=== PATIENT | male | born 1985 | race Caucasian/White ===

== ENCOUNTER → 2020-11-01 | Outpatient (CLI) | payer OTHER ==
[2020-11-01 16:07] LABS: HEMATOCRIT 33 % (40-54); LYMPHOCYTES # (AUTO) 0.3 10^3/uL (1.0-4.0); MEAN CORPUSCULAR VOLUME 92 fL (80-99)
[2020-11-01 16:09] LABS: BASOPHILS % (AUTO) 1 % (0-10); EOSINOPHILS # (AUTO) 0.4 10^3/uL (0.0-0.3); EOSINOPHILS % (AUTO) 17 % (0-10); HEMOGLOBIN 10.7 g/dL (13.3-17.7); LYMPHOCYTES % (AUTO) 12 % (12-44); MEAN CORPUSCULAR HEMOGLOBIN 30 pg (25-34); MEAN CORPUSCULAR HGB CONC 32 g/dL (32-36); MEAN PLATELET VOLUME 11.2 fL (9.0-12.2); MONOCYTES # (AUTO) 0.1 10^3/uL (0.0-1.0); MONOCYTES % (AUTO) 6 % (0-12); NEUTROPHILS # (AUTO) 1.4 10^3/uL (1.8-7.8); NEUTROPHILS % (AUTO) 63 % (42-75); PLATELET COUNT 98 10^3/uL (130-400); WHITE BLOOD COUNT 2.2 10^3/uL (4.3-11.0)
[2020-11-01 16:16] LABS: ALBUMIN 3.4 GM/DL (3.2-4.5); CHLORIDE 109 MMOL/L (98-107)
[2020-11-01 16:17] LABS: SODIUM 138 MMOL/L (135-145)
[2020-11-01 16:18] LABS: CALCIUM 8.1 MG/DL (8.5-10.1)
[2020-11-01 16:19] LABS: GLUCOSE 90 MG/DL (70-105)
[2020-11-01 16:20] LABS: CARBON DIOXIDE 21 MMOL/L (21-32)
[2020-11-01 16:21] LABS: BILIRUBIN,TOTAL 0.5 MG/DL (0.1-1.0)
[2020-11-01 16:22] LABS: ALKALINE PHOSPHATASE 206 U/L (40-136)
[2020-11-01 16:23] LABS: CREATININE SERUM 0.74 MG/DL (0.60-1.30); GFR ESTIMATED > 60
[2020-11-01 16:24] LABS: BUN/CREATININE RATIO 14
[2020-11-01 16:25] LABS: ALANINE AMINOTRANSFERASE 153 U/L (0-55)
[2020-11-01 16:45] LABS: ANISOCYTOSIS SLIGHT; BAND NEUTROPHILS 0 %; BASOPHILS % (MANUAL) 0 %; ELLIPT/OVALOCYTES MODERATE; EOSINOPHILS % (MANUAL) 20 %; LYMPHOCYTES % (MANUAL) 12 %; MONOCYTES % (MANUAL) 2 %; NEUTROPHILS % (MANUAL) 66 %
[2020-11-01 16:46] LABS: ERYTHROCYTE SEDIMENTATION RATE 33 MM/HR (0-15)
== END ==
LOC: LAB 15:42
PROVIDERS: ATTEND Nurse Practitioner Family
DX: Z11.4 Encounter for screening for human immunodeficiency virus [HIV] (principal); R53.83 Other fatigue; R79.9 Abnormal finding of blood chemistry, unspecified; L02.416 Cutaneous abscess of left lower limb
CPT/HCPCS: 36415; 80053; 83036; 84443; 85007; 85027; 85652; 86703

== ENCOUNTER → 2020-11-01 | Outpatient (CLI) | payer OTHER | LOC: WOUNDCARE 13:36 | PROVIDERS: ATTEND Surgery | DX: L97.222 Non-pressure chronic ulcer of left calf with fat layer exposed (principal); B37.6 Candidal endocarditis; I48.91 Unspecified atrial fibrillation | CPT/HCPCS: 11104; A6197; G0463 ==

== ENCOUNTER → 2020-11-08 | Outpatient (CLI) | payer OTHER | LOC: WOUNDCARE 15:18 | PROVIDERS: ATTEND Surgery | DX: L97.222 Non-pressure chronic ulcer of left calf with fat layer exposed (principal); B37.6 Candidal endocarditis; I48.91 Unspecified atrial fibrillation; D72.810 Lymphocytopenia; B20 Human immunodeficiency virus [HIV] disease; I96 Gangrene, not elsewhere classified | CPT/HCPCS: 99212 ==

== ENCOUNTER → 2020-11-15 | Outpatient (CLI) | payer OTHER | LOC: WOUNDCARE 15:02 | PROVIDERS: ATTEND Surgery | DX: L97.222 Non-pressure chronic ulcer of left calf with fat layer exposed (principal); B37.6 Candidal endocarditis; I48.91 Unspecified atrial fibrillation; D72.810 Lymphocytopenia; B20 Human immunodeficiency virus [HIV] disease; I96 Gangrene, not elsewhere classified | CPT/HCPCS: 11042; A6260; G0463 ==

== ENCOUNTER → 2020-11-19 | Outpatient (CLI) | payer BC, OTHER ==
[~2020-11-19] MED LIST: BICT1TAB PO; FLUC50TA5 PO
== END ==
LOC: LAB 10:49
DX: Z20.822 Contact with and (suspected) exposure to COVID-19 (principal)

== ENCOUNTER → 2020-11-19 | Outpatient (CLI) | payer MEDICAID, OTHER | LOC: LAB 10:47 | PROVIDERS: ATTEND Pediatrics | DX: B20 Human immunodeficiency virus [HIV] disease (principal) | CPT/HCPCS: 36415; 87040; 87910 ==

== ENCOUNTER → 2020-11-22 | Outpatient (CLI) | payer BC, OTHER | LOC: WOUNDCARE 15:08 | PROVIDERS: ATTEND Surgery | DX: L97.222 Non-pressure chronic ulcer of left calf with fat layer exposed (principal); B37.6 Candidal endocarditis; I48.91 Unspecified atrial fibrillation; B20 Human immunodeficiency virus [HIV] disease; D72.810 Lymphocytopenia | CPT/HCPCS: 11042; G0463 ==

== ENCOUNTER → 2020-12-06 | Outpatient (CLI) | payer BC, OTHER | LOC: WOUNDCARE 15:24 | PROVIDERS: ATTEND Surgery | DX: B20 Human immunodeficiency virus [HIV] disease (principal); L97.222 Non-pressure chronic ulcer of left calf with fat layer exposed; B37.6 Candidal endocarditis; I48.91 Unspecified atrial fibrillation; D72.810 Lymphocytopenia | CPT/HCPCS: 99212 ==

== ENCOUNTER 2020-12-14 05:33 | Outpatient (RCR) | payer BC, OTHER ==
[~2020-12-14] VITALS: Ht 193 cm; Wt 99.9 kg
== END 2020-12-14 09:20 | disposition home or self-care (01) ==
LOC: PREOP 05:33
PROVIDERS: ATTEND Surgery
DX: Z01.812 Encounter for preprocedural laboratory examination (principal); R13.10 Dysphagia, unspecified; Z20.822 Contact with and (suspected) exposure to COVID-19
CPT/HCPCS: 87635

== ENCOUNTER → 2020-12-14 | Outpatient (CLI) | payer BC, OTHER | LOC: LAB 08:35 | PROVIDERS: ATTEND Pediatrics | DX: B20 Human immunodeficiency virus [HIV] disease (principal) | CPT/HCPCS: 36415; 87910 ==

== ENCOUNTER 2020-12-15 10:45 | Day surgery (SDC) | payer BC, OTHER ==
[~2020-12-15] VITALS: Ht 193 cm; Wt 99.9 kg
[2020-12-15] MEDS ORDERED: LACTATED RINGERS 1,000 ML IV ONE (10:57)
--- NOTE | 2020-12-15 11:08 | Progress Note-Pre Operative ---
Pre-Operative Progress Note H&P Reviewed The H&P was reviewed, patient examined and no changes noted. Time Seen by Provider: 11:06 Date H&P Reviewed: December 15, 2020 Time H&P Reviewed: 11:06 Pre-Operative Diagnosis: Dysphagia BAKARI JUAREZ DO December 15, 2020 11:08
[2020-12-15 11:15] VITALS: BP 107/79
[2020-12-15] MEDS ORDERED: proPOfol 200 MG/20 ML (DIPRIVAN) VIAL IV ONE (11:17)
[2020-12-15] MEDS ORDERED: MIDAZOLAM 2 MG/2 ML (VERSED) VIAL ONE (11:17)
--- NOTE | 2020-12-15 11:49 | Progress Note-Post Operative ---
Post-Operative Progess Note Surgeon (s)/House Detective (s) Surgeon BAKARI JUAREZ DO House Detective: none Pre-Operative Diagnosis Dysphagia Post-Operative Diagnosis same plus mild gastritis Hiatal hernia Procedure & Operative Findings Date of Procedure 12/15/20 Procedure Performed/Findings PROCEDURE NOTE: After informed consent was obtained, the patient was brought to the endoscopy suite, placed in bed in left lateral decubitus position. He was administered IV sedation by the PROCESS COACH who then monitored his vitals the entire time, heart rate, blood pressure and pulse ox and the scope was inserted down the mouth through the esophagus into the stomach. On the way down, noted some mild esophagitis, took a picture, pushed into the stomach, pushed pass the antrum into the duodenum. Duodenum looked good. Pulled back and did a biopsy of antrum, then retroflexed the scope, saw hiatal hernia, took a picture of this and then pulled the scope into the GE junction, took another picture of the hiatal hernia and then did a biopsy of the GE junction. Pushed the scope back into the stomach, suctioned all the air out of the stomach and then pulled the scope up the esophagus, took some pictures in the esophagus. There were no ulcers, yeast or strictures and at this point pulled the scope up the esophagus and out the mouth. The patient tolerated the procedure, and he was recovered in the endoscopy suite. Anesthesia Type IV sedation by PROCESS COACH Estimated Blood Loss Estimated blood loss (mL): scant Specimens/Packing Specimens Removed antral bx GE jxn bx BAKARI JUAREZ DO December 15, 2020 11:49
[2020-12-15 11:50] VITALS: BP 113/66
--- NOTE | 2020-12-15 11:50 | Endoscopy Discharge Instruct ---
Endo Procedure/Findings Findings 1.: Gastritis 2.: Hiatal Hernia Discharge Instructions - Activity: You might feel a little sleepy until tomorrow. This is due to the medicine you received to relax you. Until tomorrow, you should: NOT drive a car, operate machinery or power tools. NOT drink any alcoholic beverages. NOT make any important decisions or sign importortant papers. Do not return to work until tomorrow, unless otherwise instructed. Resume previous activities tomorrow. Diet: Start by taking liquids. If you tolerate liquids, advance to solid food. 1.: EGD in 3 years Notify Physician - If you experience excessive bleeding, unusual abdominal pain, fever, or chest pain, contact your doctor immediately. BAKARI JUAREZ DO December 15, 2020 11:50
[2020-12-15 11:55] VITALS: BP 110/71
[2020-12-15 12:00] VITALS: BP 110/71
[2020-12-15] MEDS ORDERED: LACTATED RINGERS 1,000 ML IV STA (12:04)
[2020-12-15] MEDS ORDERED: HURRICAINE EXT TUBE (BENZOCAINE) XX PRN (12:15)
--- NOTE | 2020-12-15 12:17 | Anesthesia-General Post-Op ---
MAC Patient Condition Mental Status/LOC: Same as Preop Cardiovascular: Satisfactory Nausea/Vomiting: Absent Respiratory: Satisfactory Pain: Controlled Complications: Absent Post Op Complications Complications None Follow Up Care/Instructions Patient Instructions None needed. Anesthesiology Discharge Order Discharge Order Patient is doing well, no complaints, stable vital signs, no apparent adverse anesthesia problems. No complications reported per nursing. ALEISHA SANCHEZ CRNA December 15, 2020 12:17
[2020-12-15 12:30] VITALS: BP 105/69
[2020-12-15 12:33] VITALS: BP 105/69
== END 2020-12-15 12:33 | disposition home or self-care (01) ==
LOC: ENDO 10:45
PROVIDERS: ATTEND Surgery
DX: K20.90 Esophagitis, unspecified without bleeding (principal); K44.9 Diaphragmatic hernia without obstruction or gangrene; K29.70 Gastritis, unspecified, without bleeding; B20 Human immunodeficiency virus [HIV] disease; F17.210 Nicotine dependence, cigarettes, uncomplicated; Z79.2 Long term (current) use of antibiotics; Z79.899 Other long term (current) drug therapy
CPT/HCPCS: 88305

== ENCOUNTER 2021-03-14 16:05 | Inpatient (IN) | payer BC ==
[~2021-03-14] VITALS: Ht 193 cm; Wt 98.0 kg
--- NOTE | 2021-03-14 16:40 | ED General ---
General Stated Complaint: SOB/COUGH/HEADACHE/FEVER Source of Information: Patient Exam Limitations: No Limitations (LI ALEXANDRA APRN) History of Present Illness Date Seen by Provider: Mar 14, 2021 Time Seen by Provider: 16:37 Initial Comments To ER for [facility] with reports of concern for sepsis. He was found to be tachycardic and febrile with wheezing noted. History of HIV with a CD4 count most recently of either 39 or 49. He is on Biktarvy since September of this year. He is on Bactrim for Pneumocystis carinii infection prophylaxis and Zithromax for Mycobacterium avium complex prophylaxis. He did receive his second Moderna vaccination on the . Fever up to 101 last night. Timing/Duration: 1-2 Days Severity: Moderate Associated Systoms: Cough, Shortness of Air (LI ALEXANDRA APRN) Allergies and Home Medications Allergies Coded Allergies: No Known Drug Allergies (Unverified , 12/15/20) Home Medications Bictegrav/Emtricit/Tenofov Ala 1 Each Tablet, 1 EACH PO DAILY, (Reported) Fluconazole 50 Mg Tablet, 50 MG PO DAILY, (Reported) Patient Home Medication List Home Medication List Reviewed: Yes (LI ALEXANDRA APRN) Review of Systems Review of Systems Constitutional: see HPI, fever EENTM: see HPI Respiratory: see HPI, cough, short of breath Cardiovascular: no symptoms reported Genitourinary: no symptoms reported Musculoskeletal: no symptoms reported Skin: no symptoms reported Psychiatric/Neurological: No Symptoms Reported Hematologic/Lymphatic: No Symptoms Reported Immunological/Allergic: no symptoms reported (LI ALEXANDRA APRN) Past Hghiknr-Dmfbns-Szzyyo Hx Seasonal Allergies Seasonal Allergies: No (LI ALEXANDRA APRN) Past Medical History Surgeries: Yes Orthopedic Respiratory: No Cardiac: No Neurological: No Genitourinary: No Gastrointestinal: No Musculoskeletal: Yes (BACK SURGERY x2) Endocrine: No HEENT: No Cancer: No Psychosocial: No Integumentary: No Blood Disorders: Yes (HIV+) (LI ALEXANDRA APRN) Physical Exam Vital Signs Vital Signs - First Documented 03/14/21 16:17 Temp 37.4 Pulse 108 Resp 20 B/P (MAP) 138/98 (111) Pulse Ox 94 O2 Delivery Room Air (LUCIA RATLIFF) Vital Signs Capillary Refill : (LI ALEXANDRA APRN) Height, Weight, BMI Height: '" Weight: lbs. oz. kg; 26.81 BMI Method: General Appearance: No Apparent Distress, WD/WN, Other (Alert and oriented nontoxic-appearing. Heart rate 106 oxygen saturation 93% room air blood pressure 139/90. Audible wheezing.) Eyes: Bilateral Eye Normal Inspection, Bilateral Eye PERRL HEENT: PERRL/EOMI, TMs Normal Neck: Full Range of Motion, Normal Inspection Respiratory: No Accessory Muscle Use, No Respiratory Distress, Wheezing Cardiovascular: Normal Peripheral Pulses, Tachycardia Gastrointestinal: Normal Bowel Sounds, Non Tender, Soft Extremity: Normal Capillary Refill, Normal Inspection Neurologic/Psychiatric: Alert, Oriented x3 Skin: Normal Color, Warm/Dry (LI ALEXANDRA APRN) Focused Exam Lactate Level 03/14/21 16:18: Lactic Acid Level 1.00 (LUCIA RATLIFF) Lactic Acid Level Laboratory Tests Test 03/14/21 16:18 Lactic Acid Level 1.00 MMOL/L (0.50-2.00) (LUCIA RATLIFF) Progress/Results/Core Measures Suspected Sepsis SIRS Temperature: Pulse: Respiratory Rate: Laboratory Tests 03/14/21 16:18: White Blood Count 5.5 Blood Pressure / Mean: 03/14/21 16:18: Lactic Acid Level 1.00 Laboratory Tests 03/14/21 16:18: Creatinine 1.20, INR Comment 1.0, Platelet Count 203, Total Bilirubin 0.5 (LI ALEXANDRA APRN) Results/Orders Lab Results Laboratory Tests Test 03/14/21 16:18 03/14/21 16:24 03/14/21 17:37 03/14/21 17:55 Range/Units White Blood Count 5.5 4.3-11.0 10^3/uL Red Blood Count 5.59 H 4.30-5.52 10^6/uL Hemoglobin 17.6 13.3-17.7 g/dL Hematocrit 52 40-54 % Mean Corpuscular Volume 93 80-99 fL Mean Corpuscular Hemoglobin 32 25-34 pg Mean Corpuscular Hemoglobin Concent 34 32-36 g/dL Red Cell Distribution Width 13.3 10.0-14.5 % Platelet Count 203 130-400 10^3/uL Mean Platelet Volume 9.0 9.0-12.2 fL Immature Granulocyte % (Auto) 0 % Neutrophils (%) (Auto) 69 42-75 % Lymphocytes (%) (Auto) 19 12-44 % Monocytes (%) (Auto) 6 0-12 % Eosinophils (%) (Auto) 5 0-10 % Basophils (%) (Auto) 1 0-10 % Neutrophils # (Auto) 3.8 1.8-7.8 10^3/uL Lymphocytes # (Auto) 1.1 1.0-4.0 10^3/uL Monocytes # (Auto) 0.3 0.0-1.0 10^3/uL Eosinophils # (Auto) 0.3 0.0-0.3 10^3/uL Basophils # (Auto) 0.1 0.0-0.1 10^3/uL Immature Granulocyte # (Auto) 0.0 0.0-0.1 10^3/uL Prothrombin Time 13.1 12.2-14.7 SEC INR Comment 1.0 0.8-1.4 Activated Partial Thromboplast Time 31 24-35 SEC Sodium Level 138 135-145 MMOL/L Potassium Level 4.0 3.6-5.0 MMOL/L Chloride Level 106 98-107 MMOL/L Carbon Dioxide Level 23 21-32 MMOL/L Anion Gap 9 5-14 MMOL/L Blood Urea Nitrogen 10 7-18 MG/DL Creatinine 1.20 0.60-1.30 MG/DL Estimat Glomerular Filtration Rate 68 BUN/Creatinine Ratio 8 Glucose Level 80 70-105 MG/DL Lactic Acid Level 1.00 0.50-2.00 MMOL/L Calcium Level 9.9 8.5-10.1 MG/DL Corrected Calcium 8.5-10.1 MG/DL Total Bilirubin 0.5 0.1-1.0 MG/DL Aspartate Amino Transf (AST/SGOT) 22 5-34 U/L Alanine Aminotransferase (ALT/SGPT) 22 0-55 U/L Alkaline Phosphatase 80 40-136 U/L B-Type Natriuretic Peptide < 10.0 <100.0 PG/ML Total Protein 8.5 H 6.4-8.2 GM/DL Albumin 4.6 H 3.2-4.5 GM/DL Procalcitonin 0.04 <0.10 NG/ML Influenza Type A (RT-PCR) Not Detected Not Detecte Influenza Type B (RT-PCR) Not Detected Not Detecte SARS-CoV-2 RNA (RT-PCR) Not Detected Not Detecte Urine Color YELLOW Urine Clarity CLEAR Urine pH 6.0 5-9 Urine Specific [place] 1.015 L 1.016-1.022 Urine Protein 1+ H NEGATIVE Urine Glucose (UA) NEGATIVE NEGATIVE Urine Ketones NEGATIVE NEGATIVE Urine Nitrite NEGATIVE NEGATIVE Urine Bilirubin NEGATIVE NEGATIVE Urine Urobilinogen 1.0 < = 1.0 MG/DL Urine Leukocyte Esterase NEGATIVE NEGATIVE Urine RBC (Auto) NEGATIVE NEGATIVE Urine RBC NONE /HPF Urine WBC RARE /HPF Urine Squamous Epithelial Cells RARE /HPF Urine Crystals PRESENT H /LPF Urine Calcium Oxalate Crystals RARE H /LPF Urine Bacteria NEGATIVE /HPF Urine Casts NONE /LPF Urine Mucus NEGATIVE /LPF Urine Culture Indicated CULTURE PENDING (LUCIA RATLIFF) Medications Given in ED Current Medications Medications Dose Ordered Sig/Sonam Route Start Time Stop Time Status Last Admin Dose Admin Cefepime HCl 2000 mg/Sterile Water 20 ml @ 240 mls/hr ONCE ONCE IV 03/14/21 18:15 03/14/21 18:19 DC 03/14/21 18:20 240 MLS/HR Vancomycin HCl 1500 mg/Sodium Chloride 500 ml @ 257.5 mls/ hr ONCE ONCE IV 03/14/21 18:15 03/14/21 20:11 DC 03/14/21 18:27 257.5 MLS/HR (LUCIA RATLIFF) Vital Signs/I&O 03/14/21 03/14/21 16:17 16:45 Temp 37.4 Pulse 108 Resp 20 B/P (MAP) 138/98 (111) Pulse Ox 94 O2 Delivery Room Air Room Air (LUCIA RATLIFF) Vital Signs/I&O Capillary Refill : (LI ALEXANDRA APRN) Progress Note : Time: 22:44 Progress Note Assumed care of the patient at shift change. He has sepsis, HIV complicated pneumonia. Previous CD4 counts were below 40. We will continue looking for a place for him to go to. Cefepime and vancomycin. (LUCIA RATLIFF) Progress Note : Time: 06:35 Progress Note Patient care assumed at shift change from Dr. Ratliff. Very pleasant 35-year-old male with a chief complaint of cough, congestion and wheezing, shortness of breath. Patient states that his symptoms started last Sunday with cough and congestion, progressed on Sunday to more shortness of breath on Sunday he sta rted running fever. Patient went to his primary care provider yesterday afternoon and was then sent to the emergency department for evaluation. Patient was found to have a right lower lobe infiltrate. Reported low CD4 counts less than 40. He is on HIV medications. He denies any problems with bowel or bladder. No rashes. No earache sore throat. He has been in this department for about 14 hours secondary to bed availability and concern for need for infectious disease consult. Patient's sepsis markers are negative. His blood pressure has been good his heart rate is currently down into the 80s. Oxygen saturations are 94 to 95% on room air. He has no increased work of breathing or respiratory distress currently. He does have coarse wheezy breath sounds bilaterally. Patient has had 2 doses of cefepime as well as a dose of vancomycin. He is also on antibiotic prophylaxis with Bactrim and azithromycin. We will speak with ICU/pulmonary critical care services for consult. Overall patient looks well this morning. Blood cultures pending. [address] Brand with eICU. He is very comfortable with the current management plan of cefepime and vancomycin. He states in no way at this time does the patient require intensive care placement. He would be comfortable with MedSurg placement. Vital signs remained stable, I did also subsequently discussed the case with Dr. Lambert who accepts the patient to the MedSurg floor. (DIANA VALENTIN MD) Diagnostic Imaging Diagonstic Imaging: Xray Comments NAME: JULIANE SMITHTAY [facility] REC#: [id number] PT STATUS: REG ER : 1985 PHYSICIAN: LI ALEXANDRA UNDERWRITING DIRECTOR ADMIT DATE: 03/14/21/ER Draft Date of Exam:03/14/21 CHEST 1 VIEW, AP/PA ONLY EXAM: CHEST 1 VIEW, AP/PA ONLY INDICATION: Sepsis. COMPARISON: None. FINDINGS: Subtle airspace opacity in the medial right lung base. No pleural effusion or pneumothorax. Normal heart size and central pulmonary vascularity. No acute osseous findings. IMPRESSION: Mild atelectasis or infiltrate in the medial right lung base. Remainder negative. Dictated on workstation # [id number] Dict: 03/14/211822 Trans: 03/14/211826 [facility] [id number] Interpreted by: OMAYRA RODRIGUEZ MD Electronically signed by: (LI ALEXANDRA APRN) Departure Communication (Admissions) 1921-At this time there are no floor beds available at the following [facility]; [facility] [address] [facility] and [facility] 2127-Per [facility] ([facility], [place], [facility], [facility] and [place]), they do not have any beds available. NAME: HILARIO SMITH [facility] REC#: [id number] PT STATUS: REG ER : 1985 PHYSICIAN: LI ALEXANDRA APRN ADMIT DATE: 03/14/21/ER Draft Date of Exam:03/14/21 CHEST 1 VIEW, AP/PA ONLY EXAM: CHEST 1 VIEW, AP/PA ONLY INDICATION: Sepsis. COMPARISON: None. FINDINGS: Subtle airspace opacity in the medial right lung base. No pleural effusion or pneumothorax. Normal heart size and central pulmonary vascularity. No acute osseous findings. IMPRESSION: Mild atelectasis or infiltrate in the medial right lung base. Remainder negative. 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 Referrals: NELIA DAVIS MD (PCP/Family) Primary Care Physician LI ALEXANDRA APRN Mar 14, 2021 16:40 LUCIA RATLIFF Mar 14, 2021 22:45 DIANA VALENTIN MD Mar 15, 2021 06:38
[2021-03-14] MEDS ORDERED: ALBUTEROL/IPRATROP (COMBIVENT RESPIMAT) 4 GM INHALER IH ONE (16:45)
[2021-03-14 16:47] LABS: BASOPHILS # (AUTO) 0.1 10^3/uL (0.0-0.1); BASOPHILS % (AUTO) 1 % (0-10); EOSINOPHILS # (AUTO) 0.3 10^3/uL (0.0-0.3); EOSINOPHILS % (AUTO) 5 % (0-10); HEMATOCRIT 52 % (40-54); HEMOGLOBIN 17.6 g/dL (13.3-17.7); LYMPHOCYTES # (AUTO) 1.1 10^3/uL (1.0-4.0); LYMPHOCYTES % (AUTO) 19 % (12-44); MEAN CORPUSCULAR HEMOGLOBIN 32 pg (25-34); MEAN CORPUSCULAR HGB CONC 34 g/dL (32-36); MEAN CORPUSCULAR VOLUME 93 fL (80-99); MONOCYTES # (AUTO) 0.3 10^3/uL (0.0-1.0); MONOCYTES % (AUTO) 6 % (0-12); NEUTROPHILS # (AUTO) 3.8 10^3/uL (1.8-7.8); NEUTROPHILS % (AUTO) 69 % (42-75); PLATELET COUNT 203 10^3/uL (130-400); WHITE BLOOD COUNT 5.5 10^3/uL (4.3-11.0)
[2021-03-14 16:59] LABS: ALBUMIN 4.6 GM/DL (3.2-4.5)
[2021-03-14 17:00] LABS: CHLORIDE 106 MMOL/L (98-107); SODIUM 138 MMOL/L (135-145)
[2021-03-14 17:01] LABS: CALCIUM 9.9 MG/DL (8.5-10.1)
[2021-03-14 17:02] LABS: GLUCOSE 80 MG/DL (70-105); TOTAL PROTEIN 8.5 GM/DL (6.4-8.2)
[2021-03-14 17:03] LABS: CARBON DIOXIDE 23 MMOL/L (21-32)
[2021-03-14 17:04] LABS: BILIRUBIN,TOTAL 0.5 MG/DL (0.1-1.0)
[2021-03-14 17:05] LABS: ALKALINE PHOSPHATASE 80 U/L (40-136)
[2021-03-14 17:06] LABS: GFR ESTIMATED 68
[2021-03-14 17:07] LABS: BUN/CREATININE RATIO 8; PROTHROMBIN TIME PATIENT 13.1 SEC (12.2-14.7)
[2021-03-14 17:09] LABS: ALANINE AMINOTRANSFERASE 22 U/L (0-55)
[2021-03-14] MEDS ORDERED: RT-ALBUTEROL HFA 8.5 GM INHALER IH SCH ×2 (17:15→18:00)
[2021-03-14 18:05] LABS: BILIRUBIN,URINE NEGATIVE (NEGATIVE); CLARITY,URINE CLEAR; COLOR,URINE YELLOW; GLUCOSE, URINE (UA) NEGATIVE (NEGATIVE); KETONES,URINE NEGATIVE (NEGATIVE); LEUKOCYTE ESTERASE ,URINE NEGATIVE (NEGATIVE); NITRITE,URINE NEGATIVE (NEGATIVE); PROTEIN,URINE 1+ (NEGATIVE)
[2021-03-14] MEDS ORDERED: VANCOMYCIN INJECTION 1,500 MG in NS IV 500 ML 500 ML IV ONE (18:15)
[2021-03-14] MEDS ORDERED: CEFEPIME INJECTION 2,000 MG in WATER (STERILE) FOR INJECTION 20 ML IV ONE (18:15)
[2021-03-14 18:23] LABS: BACTERIA,URINE NEGATIVE /HPF; CALCIUM OXALATE CRYSTALS,UR RARE /LPF; SQUAMOUS EPITHELIAL CELL,UR RARE /HPF; WBC,URINE RARE /HPF
--- NOTE | 2021-03-14 18:27 | Diagnostic Imaging Report ---
EXAM: CHEST 1 VIEW, AP/PA ONLY INDICATION: Sepsis. COMPARISON: None. FINDINGS: Subtle airspace opacity in the medial right lung base. No pleural effusion or pneumothorax. Normal heart size and central pulmonary vascularity. No acute osseous findings. IMPRESSION: Mild atelectasis or infiltrate in the medial right lung base. Remainder negative. Dictated by: Dictated on workstation # [id number]
[2021-03-15] MEDS ORDERED: CEFEPIME INJECTION 1,000 MG in WATER (STERILE) FOR INJECTION 10 ML IV ONE (04:45)
[2021-03-15 04:51] LABS: BASOPHILS % (AUTO) 1 % (0-10); EOSINOPHILS # (AUTO) 0.2 10^3/uL (0.0-0.3); EOSINOPHILS % (AUTO) 7 % (0-10); HEMATOCRIT 50 % (40-54); LYMPHOCYTES # (AUTO) 0.8 10^3/uL (1.0-4.0); LYMPHOCYTES % (AUTO) 22 % (12-44); MEAN CORPUSCULAR HEMOGLOBIN 32 pg (25-34); MEAN CORPUSCULAR HGB CONC 34 g/dL (32-36); MEAN CORPUSCULAR VOLUME 94 fL (80-99); MEAN PLATELET VOLUME 8.9 fL (9.0-12.2); MONOCYTES # (AUTO) 0.3 10^3/uL (0.0-1.0); MONOCYTES % (AUTO) 7 % (0-12); NEUTROPHILS # (AUTO) 2.3 10^3/uL (1.8-7.8); NEUTROPHILS % (AUTO) 63 % (42-75); PLATELET COUNT 188 10^3/uL (130-400); WHITE BLOOD COUNT 3.7 10^3/uL (4.3-11.0)
[2021-03-15 04:58] LABS: POTASSIUM 4.1 MMOL/L (3.6-5.0)
[2021-03-15 04:59] LABS: CALCIUM 9.6 MG/DL (8.5-10.1)
[2021-03-15 05:03] LABS: CREATININE SERUM 1.26 MG/DL (0.60-1.30)
[2021-03-15 08:32] VITALS: BP 96/56
[2021-03-15] MEDS ORDERED: CATHETER FLUSH 10 ML SYR IV PRN (09:15)
[2021-03-15] MEDS: NS IV 1000 ML 1,000 ML IV SCH ×3 (09:27→20:43)
[2021-03-15] MEDS ORDERED: VALG450T3 PO (10:02)
[2021-03-15] MEDS ORDERED: AZIT600T5 PO (10:02)
[2021-03-15] MEDS ORDERED: SULF1TAB38 PO (10:02)
[2021-03-15] MEDS ORDERED: RT-ALBUTEROL/IPRATROPIUM 3 ML (DUONEB) VIAL INH PRN (10:15)
[2021-03-15] MEDS: VANCOMYCIN 1500 MG/NS 500 ML IVPB IV SCH ×4 (10:41→22:07)
--- NOTE | 2021-03-15 11:36 | History & Physical-Hospitalist ---
RUTH KWANLAN MED STUDENT 03/15/21 1136: History of Present Illness HPI/Chief Complaint This is [place] a 35 yo male that presented to the ED on 03/14 with the chief complaints of SOB, cough, and a fever. He first went to see Dr. Sarabia, his PCP, who advised him to go the ED. He has had HIV for 12 years complicating this process. He stated that these symptoms began on Sunday and continued to get worse as the weekend progressed. On Sunday night he described getting a fever of 101.3F. Pt stated that walking and movement made his symptoms worse and that not gabriel made him feel better. He had similar symptoms 3 years ago which required a 2 week hospitalization in [place]. 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 He has had 2 back surgeries. No significant family history was provided. Pt takes bactrim, azithromycin, and Biktarvy for management of HIV. CXR was completed in the ED which showed mild atelectasis or infiltrates in the medial right lung base. Pt was admitted to inpatient care under Dr. Lambert with the admitting diagnoses of RLL pneumonia and HIV. Source: patient Date Seen 03/15/21 Attending Physician Betty Lambert Julie A MD Referring Physician Date of Admission Mar 15, 2021 at 06:51 Home Medications & Allergies Home Medications Reviewed patient Home Medication Reconciliation performed by pharmacy medication reconciliations infectious disease technician and/or nursing. Patients Allergies have been reviewed. Allergies Allergies Coded Allergies No Known Drug Allergies (Unverified12/15/20) Past Ziyhwsa-Nzhocs-Dfofia Hx Patient Social History Tobacco Use?: Yes Tobacco type used: Cigarettes Smoking Status: Current Everyday Smoker Use of E-Cig and/or Vaping dev: No Substance use?: No Alcohol Use?: No Pt feels they are or have been: No Immunizations Up To Date First/Initial COVID19 Vaccinat: 02-04-20 Second COVID19 Vaccination Man: 03/09/21 Tetanus Booster (TDap): Less Than 5 Years Hepatitis A: Yes Hepatitis B: Yes Seasonal Allergies Seasonal Allergies: No Current Status Advance Directives: No Communicates: Verbally Primary Language: Algerian Preferred Spoken Language: Algerian Is interpretation needed?: No Implanted or Applied Medical D: None Past Medical History Surgeries: Orthopedic (2 back surgeries) HIV/AIDS: Yes (diagnosed 12 years ago) Blood Disorders: Yes (HIV+) Review of Systems Constitutional: No chills, No diaphoresis, No fever, No weakness, No weight gain, No weight loss EENTM: No ear pain, No double vision, No eye pain, No throat pain Respiratory: cough, dyspnea on exertion; No hemoptysis; short of breath Cardiovascular: chest pain (described as a burning sensation); No edema, No Hx of Intervention, No palpitations Gastrointestinal: No abdominal pain, No constipation, No diarrhea, No nausea, No vomiting Genitourinary: No dysuria, No frequency, No hematuria, No hesitancy Musculoskeletal: No joint pain, No muscle pain Skin: No dryness, No lesions, No rash Psychiatric/Neurological: Denies Anxiety, Denies Depressed, Denies Headache, Denies Numbness, Denies Tingling, Denies Weakness Physical Exam Physical Exam Vital Signs Vital Signs - First Documented 03/14/21 03/15/21 16:17 08:05 Temp 37.4 Pulse 108 Resp 20 B/P (MAP) 138/98 (111) Pulse Ox 94 O2 Delivery Room Air O2 Flow Rate 2.00 Capillary Refill : Less Than 3 Seconds Height, Weight, BMI Height: '" Weight: lbs. oz. kg; 26.30 BMI Method: General Appearance: No Apparent Distress, WD/WN HEENT: PERRL/EOMI, Pharynx Normal Neck: Normal Inspection, Non Tender, Supple Respiratory: Chest Non Tender, Normal Breath Sounds, No Accessory Muscle Use, Crackles (RLL) Cardiovascular: Regular Rate, Rhythm, No Edema, No Gallop, No Murmur, Normal Peripheral Pulses Gastrointestinal: Normal Bowel Sounds, No Pulsatile Mass, Non Tender, Soft Rectal: Deferred Extremity: Normal Inspection, Non Tender, No Calf Tenderness, No Pedal Edema Neurologic/Psychiatric: Alert, Oriented x3, No Motor/Sensory Deficits, Normal Mood/Affect Skin: Normal Color, Warm/Dry Results Results/Procedures Labs Laboratory Tests 03/14/21 16:18 03/15/21 04:44 Patient resulted labs reviewed. Assessment/Plan Admission Diagnosis RLL pneumonia, HIV Assessment and Plan RLL pneumonia continue antibiotics- vancomycin and cefepime continue IV fluids monitor vitals HIV continues antivirals- valganciclovir and Biktarvy monitor labs DVT prophylaxis begin lovenox encourage IS use continue home medication cough antitussive PRN fever tylenol PRN SOB continue supplemental O2- on 2L during examination begin Duoneb begin albuterol inhaler begin breathing treatments Leukopenia WBC of 3.7 on 03/15 BETTY LAMBERT DO 03/16/21 0605: History of Present Illness HPI/Chief Complaint CC: Pneumonia HPI: This is a 35yoWM who has AIDS managed with antivirals after diagnosis 12 years ago with a CD4 count of 39 who presented to the ER after assessed in the clinic by Dr. Breanne Sarabia with tachypnea, hypoxia, cough and fever. Multiple Covid test were negative, Pt was found to have a pneumonia, recommended IV antibiotics, EICU pulmonology consulted, Pt was placed on aggressive is fluids and was monitored in the ER in case he needed to be transferred to infectious disease and mission control was arranged for help with transport during Covid overload diversion status, but at this current time he is doing very well, responding to IV fluids and I will restart all of his home medications. He will be on Lovenox for DVT prophylaxis, initiated nebulizer treatments and IS. Source: patient Exam Limitations: no limitations Time Seen by a Provider: 10:00 Past Eiwcyzl-Rgfsfb-Fxuban Hx Patient Social History Marrital Status: single Employed/Student: unemployed Smoking Status: Never a Smoker Past Medical History HIV/AIDS: Yes (diagnosed 12 years ago) Review of Systems Constitutional: see HPI Respiratory: cough, dyspnea on exertion Physical Exam Physical Exam General Appearance: No Apparent Distress, Chronically ill Eyes: Right Eye Normal Inspection, Right Eye PERRL HEENT: PERRL/EOMI, Normal ENT Inspection, Pharynx Normal, Moist Mucous Membranes Neck: Full Range of Motion, Normal Inspection, Non Tender Respiratory: Chest Non Tender, No Accessory Muscle Use, No Respiratory Distress, Crackles (RLL), Wheezing Cardiovascular: Regular Rate, Rhythm, No Edema, No Gallop, No JVD, No Murmur, Normal Peripheral Pulses Gastrointestinal: Normal Bowel Sounds, No Organomegaly, No Pulsatile Mass, Non Tender, Soft Back: Normal Inspection, No CVA Tenderness, No Vertebral Tenderness Extremity: Normal Capillary Refill, Normal Inspection, Normal Range of Motion, Non Tender, No Calf Tenderness, No Pedal Edema Neurologic/Psychiatric: Alert, Oriented x3, No Motor/Sensory Deficits, Normal Mood/Affect Skin: Normal Color, Warm/Dry Lymphatic: No Adenopathy Assessment/Plan Admission Diagnosis Assessment: Pneumonia AIDS History of endocarditis Plan: Nebulizers IV antibiotics Oxygen Lovenox Home meds Admission Status: Inpatient Order (span 2 midnights) Reason for Inpatient Admission: Pneumonia with AIDS Diagnosis/Problems Diagnosis/Problems (1) RLL pneumonia (2) HIV disease Status: Acute Supervisory-Addendum Brief Verification & Attestation Participated in pt care: history, MDM, physical Personally performed: exam, history, MDM, supervision of care Care discussed with: Medical Student Procedures: n/a Results interpretation: Verified all documentation Verification and Attestation of Medical Student E/M Service A medical student performed and documented this service in my presence. I reviewed and verified all information documented by the medical student and made modifications to such information, when appropriate. I personally performed the physical exam and medical decision making. Betty Lambert, Mar 16, 2021,06:05 ZAYDA KWAN MED STUDENT Mar 15, 2021 11:36 BETTY LAMBERT DO Mar 16, 2021 06:05
[2021-03-15 11:37] VITALS: BP 112/77
[2021-03-15] MEDS: ENOXAPARIN 40 MG/0.4 ML (LOVENOX) SYR SC SCH (12:31)
[2021-03-15] MEDS: CEFEPIME 1,000 MG/SWFI 10 ML IV PUSH IV SCH ×4 (12:32→20:43)
[2021-03-15] MEDS: RT-ALBUTEROL SULF 2.5 MG/3 ML PRE-MIX VIAL INH SCH ×2 (14:30→22:27)
[2021-03-15] MEDS ORDERED: PATIENT MAY USE OWN MEDS, ALL MC SCH (15:15)
[2021-03-15 16:00] VITALS: BP 102/67
[2021-03-15 19:42] VITALS: BP 112/73
[2021-03-15] MEDS ORDERED: RT-ALBUTEROL/IPRATROPIUM 3 ML (DUONEB) VIAL INH SCH (21:00)
[2021-03-16 00:16] VITALS: BP 117/77
[2021-03-16 04:40] VITALS: BP 113/76
[2021-03-16] MEDS: CEFEPIME 1,000 MG/SWFI 10 ML IV PUSH IV SCH ×6 (05:13→21:22)
[2021-03-16 05:42] LABS: BASOPHILS % (AUTO) 1 % (0-10); EOSINOPHILS # (AUTO) 0.3 10^3/uL (0.0-0.3); EOSINOPHILS % (AUTO) 9 % (0-10); HEMATOCRIT 45 % (40-54); HEMOGLOBIN 14.7 g/dL (13.3-17.7); LYMPHOCYTES # (AUTO) 0.7 10^3/uL (1.0-4.0); LYMPHOCYTES % (AUTO) 21 % (12-44); MEAN CORPUSCULAR HEMOGLOBIN 31 pg (25-34); MEAN CORPUSCULAR HGB CONC 33 g/dL (32-36); MEAN CORPUSCULAR VOLUME 95 fL (80-99); MEAN PLATELET VOLUME 9.2 fL (9.0-12.2); MONOCYTES # (AUTO) 0.2 10^3/uL (0.0-1.0); MONOCYTES % (AUTO) 8 % (0-12); NEUTROPHILS # (AUTO) 1.9 10^3/uL (1.8-7.8); NEUTROPHILS % (AUTO) 61 % (42-75); PLATELET COUNT 161 10^3/uL (130-400); WHITE BLOOD COUNT 3.1 10^3/uL (4.3-11.0)
[2021-03-16 05:55] LABS: ALBUMIN 3.6 GM/DL (3.2-4.5); POTASSIUM 4.1 MMOL/L (3.6-5.0)
[2021-03-16 05:58] LABS: TOTAL PROTEIN 6.7 GM/DL (6.4-8.2)
[2021-03-16 06:00] LABS: BILIRUBIN,TOTAL 0.3 MG/DL (0.1-1.0)
[2021-03-16 06:01] LABS: CREATININE SERUM 0.9 MG/DL (0.60-1.30)
[2021-03-16] MEDS: NS IV 1000 ML 1,000 ML IV SCH (06:56)
[2021-03-16] MEDS ORDERED: TRIM/SULFAMETH 160/800 (SEPTRA DS) TAB PO SCH (08:00)
[2021-03-16 08:23] VITALS: BP 112/80
[2021-03-16] MEDS ORDERED: TROUGH ORDER-PHARMACY XX NR (09:00)
[2021-03-16] MEDS: ENOXAPARIN 40 MG/0.4 ML (LOVENOX) SYR SC SCH (09:47)
[2021-03-16] MEDS: [UNRECOGNIZED DRUG - REMARK] PO SCH (09:49)
[2021-03-16] MEDS: [UNRECOGNIZED DRUG - REMARK] PO SCH (09:49)
[2021-03-16] MEDS: RT-ALBUTEROL SULF 2.5 MG/3 ML PRE-MIX VIAL INH SCH ×3 (10:39→19:13)
[2021-03-16] MEDS: VANCOMYCIN 1500 MG/NS 500 ML IVPB IV SCH ×4 (11:24→21:21)
[2021-03-16 12:00] VITALS: BP 115/78
[2021-03-16 15:53] VITALS: BP 114/77
[2021-03-16 20:00] VITALS: BP 108/75
--- NOTE | 2021-03-16 21:33 | Progress Note - Hospitalist ---
Subjective HPI/CC On Admission Date Seen by Provider: Mar 16, 2021 Time Seen by Provider: 10:00 CC: Pneumonia HPI: This is a 35yoWM who has AIDS managed with antivirals after diagnosis 12 years ago with a CD4 count of 39 who presented to the ER after assessed in the clinic by Dr. Breanne Sarabia with tachypnea, hypoxia, cough and fever. Multiple Covid test were negative, Pt was found to have a pneumonia, recommended IV antibiotics, EICU pulmonology consulted, Pt was placed on aggressive is fluids and was monitored in the ER in case he needed to be transferred to infectious disease and mission control was arranged for help with transport during Covid overload diversion status, but at this current time he is doing very well, responding to IV fluids and I will restart all of his home medications. He will be on Lovenox for DVT prophylaxis, initiated nebulizer treatments and IS. Subjective/Events-last exam Pt doing really well Heplocking IV fluid No issues Crackles are much improved on lungs Nebulizer treatments are helpful Lovenox on board for DVT prophylaxis Review of Systems General: Fatigue, Malaise Focused Exam Lactate Level 03/14/21 16:18: Lactic Acid Level 1.00 Objective Exam Vital Signs Vital Signs Date Time Temp Pulse Resp B/P (MAP) Pulse Ox O2 Delivery O2 Flow Rate FiO2 03/17/21 04:31 36.7 80 20 111/74 (86) 93 Room Air 03/16/21 08:00 2.00 Capillary Refill : Less Than 3 Seconds General Appearance: No Apparent Distress, WD/WN, Chronically ill Respiratory: No Accessory Muscle Use, No Respiratory Distress, Crackles, Decreased Breath Sounds Cardiovascular: Regular Rate, Rhythm Neurologic/Psychiatric: Alert, Oriented x3 Results/Procedures Lab Laboratory Tests 03/16/21 05:32 Patient resulted labs reviewed. Assessment/Plan Assessment and Plan Assess & Plan/Chief Complaint Assessment: Pneumonia HIV/AIDS 12 years Plan: IV antibiotics Hep-Lock IV fluid Lovenox Discharge tomorrow Diagnosis/Problems Diagnosis/Problems (1) RLL pneumonia (2) HIV disease Status: Acute TUNG RODRÍGUEZ DO Mar 16, 2021 21:33
[2021-03-17 00:35] VITALS: BP 110/71
[2021-03-17 04:31] VITALS: BP 111/74
[2021-03-17] MEDS: CEFEPIME 1,000 MG/SWFI 10 ML IV PUSH IV SCH ×2 (05:55)
[2021-03-17 06:33] LABS: BASOPHILS % (AUTO) 1 % (0-10); EOSINOPHILS # (AUTO) 0.3 10^3/uL (0.0-0.3); EOSINOPHILS % (AUTO) 8 % (0-10); HEMATOCRIT 46 % (40-54); HEMOGLOBIN 15.1 g/dL (13.3-17.7); LYMPHOCYTES # (AUTO) 0.8 10^3/uL (1.0-4.0); LYMPHOCYTES % (AUTO) 22 % (12-44); MEAN CORPUSCULAR HEMOGLOBIN 31 pg (25-34); MEAN CORPUSCULAR HGB CONC 33 g/dL (32-36); MEAN CORPUSCULAR VOLUME 94 fL (80-99); MEAN PLATELET VOLUME 9.3 fL (9.0-12.2); MONOCYTES # (AUTO) 0.2 10^3/uL (0.0-1.0); MONOCYTES % (AUTO) 7 % (0-12); NEUTROPHILS # (AUTO) 2.2 10^3/uL (1.8-7.8); NEUTROPHILS % (AUTO) 63 % (42-75); PLATELET COUNT 184 10^3/uL (130-400); WHITE BLOOD COUNT 3.5 10^3/uL (4.3-11.0)
--- NOTE | 2021-03-17 06:33 | Progress Note - Hospitalist ---
ZAYDA KWAN MED STUDENT 03/17/21 0633: Subjective HPI/CC On Admission Date Seen by Provider: Mar 16, 2021 Time Seen by Provider: 07:45 RLL pneumonia, HIV Subjective/Events-last exam This is [place] a 35 yo male on day 3 of his hospital stay with the chief complaint of RLL pneumonia and HIV. Upon entering the room he was laying in bed watching TV. He was calm, cooperative, and engaged during questioning. Pt had no concerns and stated that he was feeling great. He expressed wanting to go home but understood that he needs to stay and receive the appropriate antibiotic treatment. Focused Exam Lactate Level 03/14/21 16:18: Lactic Acid Level 1.00 Time of Focused Exam: 07:45 Respiratory: Chest Non Tender, Normal Breath Sounds, No Accessory Muscle Use, No Respiratory Distress, Crackles (fine crackles in RLL) Cardiovascular: Regular Rate, Rhythm, No Edema, No Gallop, No Murmur, Normal Peripheral Pulses Skin: normal color, warm/dry Objective Exam Vital Signs Vital Signs Date Time Temp Pulse Resp B/P (MAP) Pulse Ox O2 Delivery O2 Flow Rate FiO2 03/17/21 04:31 36.7 80 20 111/74 (86) 93 Room Air 03/16/21 08:00 2.00 Capillary Refill : Less Than 3 Seconds General Appearance: No Apparent Distress, WD/WN HEENT: PERRL/EOMI, Pharynx Normal Neck: Normal Inspection, Non Tender, Supple Respiratory: Chest Non Tender, Normal Breath Sounds, No Accessory Muscle Use, No Respiratory Distress, Crackles (fine crackles in RLL) Cardiovascular: Regular Rate, Rhythm, No Edema, No Gallop, No Murmur, Normal Peripheral Pulses Gastrointestinal: Normal Bowel Sounds, Non Tender, Soft Rectal: Deferred Back: No Vertebral Tenderness Extremity: Normal Inspection, Non Tender, No Calf Tenderness, No Pedal Edema Neurologic/Psychiatric: Alert, Oriented x3, No Motor/Sensory Deficits, Normal Mood/Affect Skin: Normal Color, Warm/Dry Results/Procedures Lab Patient resulted labs reviewed. Assessment/Plan Assessment and Plan Assess & Plan/Chief Complaint RLL pneumonia continue antibiotics- vancomycin and cefepime continue IV fluids monitor vitals HIV continues antivirals- valganciclovir and Biktarvy monitor labs DVT prophylaxis continue lovenox encourage IS use continue home medication cough- resolved antitussive PRN fever- resolved tylenol PRN SOB-resolved continue supplemental O2- on 2L during examination begin Duoneb begin albuterol inhaler begin breathing treatments Leukopenia WBC of 3.1 on 03/16 possible D/C tomorrow BETTY RODRÍGUEZ DO 03/18/21 0443: Subjective Review of Systems General: Fatigue, Malaise Objective Exam General Appearance: No Apparent Distress, WD/WN Respiratory: No Accessory Muscle Use, No Respiratory Distress, Crackles (fine crackles in RLL) Cardiovascular: Regular Rate, Rhythm Neurologic/Psychiatric: Alert, Oriented x3 Supervisory-Addendum Brief Verification & Attestation Participated in pt care: history, MDM, physical Personally performed: exam, history, MDM, supervision of care Care discussed with: Medical Student Procedures: n/a Results interpretation: Verified all documentation Verification and Attestation of Medical Student E/M Service A medical student performed and documented this service in my presence. I reviewed and verified all information documented by the medical student and made modifications to such information, when appropriate. I personally performed the physical exam and medical decision making. Betty Rodríguez, Mar 18, 2021,04:42 ZAYDA KWAN MED STUDENT Mar 17, 2021 06:33 BETTY RODRÍGUEZ DO Mar 18, 2021 04:43
[2021-03-17 06:34] LABS: ALBUMIN 3.8 GM/DL (3.2-4.5)
[2021-03-17 06:35] LABS: CALCIUM 9.2 MG/DL (8.5-10.1)
[2021-03-17 06:37] LABS: TOTAL PROTEIN 7.1 GM/DL (6.4-8.2)
[2021-03-17 06:38] LABS: BILIRUBIN,TOTAL 0.3 MG/DL (0.1-1.0)
[2021-03-17 06:40] LABS: CREATININE SERUM 0.94 MG/DL (0.60-1.30)
[2021-03-17] MEDS: RT-ALBUTEROL SULF 2.5 MG/3 ML PRE-MIX VIAL INH SCH (07:31)
[2021-03-17 08:00] VITALS: BP 110/76
[2021-03-17] MEDS: [UNRECOGNIZED DRUG - REMARK] PO SCH (08:56)
[2021-03-17] MEDS: [UNRECOGNIZED DRUG - REMARK] PO SCH (08:56)
[2021-03-17] MEDS: VANCOMYCIN 1500 MG/NS 500 ML IVPB IV SCH ×2 (08:57)
[2021-03-17] MEDS: ENOXAPARIN 40 MG/0.4 ML (LOVENOX) SYR SC SCH (11:36)
[2021-03-17] MEDS ORDERED: LINE600T12 PO (12:09)
[2021-03-17] MEDS ORDERED: CEFD300C3 PO (12:09)
[2021-03-17] MEDS ORDERED: ALBU2.5V4 INH (12:09)
--- NOTE | 2021-03-17 12:09 | Discharge Summary ---
Discharge Summary Hospital Course Was the Problem List Reviewed?: Yes Problems/Dx: (1) RLL pneumonia (2) HIV disease Status: Acute Hospital Course Date of Admission: Mar 15, 2021 at 06:51 Admission Diagnosis : Family Physician/Provider: Breanne Sarabia MD Date of Discharge: 03/17/21 Discharge Diagnosis: Pneumonia, HIV/AIDS Hospital Course: Hospital course: Pt had a brief hospital course, he was admitted for pneumonia and high risk for decompensation due to HIV/AIDS. He was placed on Cefepime and Vanc, overall he did very well, was in an improved status and was discharged home. Labs and Pending Lab Test: Laboratory Tests 03/17/21 06:00: Sodium Level 138, Potassium Level 4.0, Chloride Level 111H, Carbon Dioxide Level 19L, Anion Gap 8, Blood Urea Nitrogen 12, Creatinine 0.94, Estimat Glomerular Filtration Rate 90, BUN/Creatinine Ratio 13, Glucose Level 90, Calcium Level 9.2, Corrected Calcium 9.4, Total Bilirubin 0.3, Aspartate Amino Transf (AST/SGOT) 15, Alanine Aminotransferase (ALT/SGPT) 17, Alkaline Phosphatase 70, Total Protein 7.1, Albumin 3.8 03/17/21 06:05: White Blood Count 3.5L, Red Blood Count 4.86, Hemoglobin 15.1, Hematocrit 46, Mean Corpuscular Volume 94, Mean Corpuscular Hemoglobin 31, Mean Corpuscular Hemoglobin Concent 33, Red Cell Distribution Width 13.3, Platelet Count 184, Mean Platelet Volume 9.3, Immature Granulocyte % (Auto) 0, Neutrophils (%) (Auto) 63, Lymphocytes (%) (Auto) 22, Monocytes (%) (Auto) 7, Eosinophils (%) (Auto) 8, Basophils (%) (Auto) 1, Neutrophils # (Auto) 2.2, Lymphocytes # (Auto) 0.8L, Monocytes # (Auto) 0.2, Eosinophils # (Auto) 0.3, Basophils # (Auto) 0.0, Immature Granulocyte # (Auto) 0.0 Microbiology 03/14/21 Urine Culture - Final, Complete NO GROWTH 03/14/21 Blood Culture - Preliminary, Resulted No growth Home Meds Active Reported Valganciclovir HCl 450 Mg Tablet 900 Mg PO DAILY TAKES 2 (450MG) TABS Bactrim Ds Tablet (Sulfamethoxazole/Trimethoprim) 1 Each Tablet 1 Ea PO MO,WE,FR Azithromycin 600 Mg Tablet 1,200 Mg PO SUN TAKES 2 (600MG) TABS Biktarvy 50-200-25 mg Tablet (Bictegrav/Emtricit/Tenofov Ala) 1 Each Tablet 1 Each PO DAILY Assessment/Pt Instructions [facility] in 1 week Discharge Planning: <30 minutes discharge planning Discharge Instructions Discharge Diet: No Restrictions Activity as Tolerated: Yes Discharge Physical Examination Vital Signs Vital Signs Date Time Temp Pulse Resp B/P (MAP) Pulse Ox O2 Delivery O2 Flow Rate FiO2 03/17/21 08:00 36.1 104 20 110/76 (87) 95 Room Air 03/16/21 08:00 2.00 General Appearance: No Apparent Distress, WD/WN, Chronically ill Respiratory: Lungs Clear Cardiovascular: Regular Rate, Rhythm Neurologic/Psychiatric: Alert, Oriented x3 Allergies: Coded Allergies: No Known Drug Allergies (Unverified , 12/15/20) Discharge Summary Date of Admission Mar 15, 2021 at 06:51 Date of Discharge Discharge Date: Mar 17, 2021 Admission Diagnosis Assessment: Pneumonia AIDS History of endocarditis Plan: Nebulizers IV antibiotics Oxygen Lovenox Home meds Discharge Diagnosis Assessment: Pneumonia HIV/AIDS 12 years Plan: IV antibiotics Hep-Lock IV fluid Lovenox Discharge tomorrow (1) RLL pneumonia (2) HIV disease Status: Acute TUNG RODRÍGUEZ DO Mar 17, 2021 12:09
--- NOTE | 2021-03-17 14:22 | Progress Note ---
ZYADA KWAN MED STUDENT 03/17/21 1422: Progress Note This is [place] a 35 yo male on day 3 on his hospital stay being discharged home. On 03/14 he presented to the ED with the chief complaints of SOB, cough, and a fever. He first went to see Dr. Sarabia, his PCP, who advised him to go the ED. He has had HIV for 12 years complicating this process. He stated that these symptoms began on the Sunday prior and continued to get worse as the weekend progressed. On Sunday night he described getting a fever of 101.3F. Pt stated that walking and movement made his symptoms worse and that nothing made him feel better. He had similar symptoms 3 years ago which required a 2 week hospitalization in [place]. Pt takes bactrim, azithromycin, and Biktarvy for management of HIV. CXR was completed in the ED on 03/14 which showed mild atelectasis or infiltrates in the medial right lung base. Pt was admitted to inpatient care under Dr. Lambert with the admitting diagnoses of RLL pneumonia and HIV. He was placed on IV antibiotics, cefepime and vancomycin, and continued to improved. Pt was also pu on lovenox for DTV prophylaxis and duonebs and albuterol inhaler to improve SOB. He required supplemental O2 for only the 1st day. Upon entering the room this morning he was lying in bed in good spirits ready to go home. He was calm, cooperative, and engaged during questioning throughout his stay. Upon discharge he will be presribed antibiotoics and instructed to continue with his home medications already established for infection prophylaxis. A follow up with Dr. Sarabia next week was also recommended. . BETTY LAMBERT DO 03/18/21 0559: Supervisory-Addendum Brief Verification & Attestation Participated in pt care: history, MDM, physical Personally performed: exam, history, MDM, supervision of care Care discussed with: Medical Student Procedures: n/a Results interpretation: Verified all documentation Verification and Attestation of Medical Student E/M Service A medical student performed and documented this service in my presence. I reviewed and verified all information documented by the medical student and made modifications to such information, when appropriate. I personally performed the physical exam and medical decision making. Betty Lambert, Mar 18, 2021,05:59 ZAYDA KWAN MED STUDENT Mar 17, 2021 14:22 BETTY LAMBERT DO Mar 18, 2021 05:59
--- NOTE | 2021-03-17 19:12 | Physician Query Clarification ---
Physician Query-General Query to Physician: The medical record reflects the following clinical evidence: Clinical Indicators: SOA, RR 18-20, HR 108, 02 sats 92% on 2L (P/F= 232) Risk Factor(s): HIV/Aids, Pneumonia Treatment: Supplemental O2, Albuterol and Duoneb, Multiple doses in the ER, cefepime IV, vancomycin IV, 1. Acute respiratory failure with hypoxia, Resolved 2. Other explanation of clinical findings 3. Unable to determine (no explanation for clinical findings) Please clarify and document your clinical opinion in the progress notes and discharge summary including the definitive and/or presumptive diagnosis, (suspected or probable), related to the above clinical findings. Please include clinical findings supporting your diagnosis. Amara Stoll MSN, RN Clinical Assistant District Attorney [phone] [email or web address] PHYSICIAN RESPONSE: Based on the clinical findings in the record, please respond to the query above on this document as an addendum. Physician Response: Physician Response Yes If you have questions please contact: Manager Relationship: Ext: Thank you for your time and cooperation. Clinical Assistant District Attorney/Manager Relationship This is a permanent part of the medical record AMARA STOLL Mar 17, 2021 19:12 TUNG RODRÍGUEZ DO Mar 17, 2021 20:43
[2021-03-20] MEDS ORDERED: AZITHROMYCIN 600 MG PO SCH (09:00)
== END 2021-03-17 12:41 | disposition home or self-care (01) | DRG 974 ==
LOC: EDUNIT# 16:05 → ER 16:07 → 4TH 03-15 06:51
PROVIDERS: ADMIT Internal Medicine; ATTEND Internal Medicine
DX: B20 Human immunodeficiency virus [HIV] disease (principal); J18.9 Pneumonia, unspecified organism; J96.01 Acute respiratory failure with hypoxia; F17.210 Nicotine dependence, cigarettes, uncomplicated; Z20.822 Contact with and (suspected) exposure to COVID-19
CPT/HCPCS: 36415; 71045; 80048; 80053; 80202; 81000; 83605; 83880; 84145; 85025; 85610; 85730; 86480; 86644; 86645; 87040; 87088; 87636; 94640; 94664; 94760; 96374; 96375

== ENCOUNTER → 2021-04-15 | Outpatient (CLI) | payer BC ==
[~2021-04-15] MED LIST changes: +ALBU2.5V4 INH; +AZIT600T5 PO; +CEFD300C3 PO; +LINE600T12 PO; +SULF1TAB38 PO; +VALG450T3 PO
== END ==
LOC: CARD 11:30
PROVIDERS: ATTEND Pediatrics
DX: B20 Human immunodeficiency virus [HIV] disease (principal); Z86.79 Personal history of other diseases of the circulatory system
CPT/HCPCS: 93306

== ENCOUNTER 2021-08-11 05:35 | Outpatient (CLI) | payer BC ==
[~2021-08-11] VITALS: Ht 193 cm; Wt 113.0 kg
[2021-08-11] MEDS ORDERED: IMIQ1CRE TP (16:06)
[2021-08-11] MEDS ORDERED: AZIT600T5 PO (16:06)
== END 2021-08-11 16:10 | disposition home or self-care (01) ==
LOC: PREOP 05:35
PROVIDERS: ATTEND Surgery
DX: Z01.818 Encounter for other preprocedural examination (principal)

== ENCOUNTER 2021-08-17 06:54 | Day surgery (SDC) | payer BC ==
[~2021-08-17] VITALS: Ht 193 cm; Wt 113.0 kg
[2021-08-17] VITALS (8 sets, daily range): BP systolic 104–116; BP diastolic 71–81
[~2021-08-17 06:54] MED LIST changes: +IMIQ1CRE TP
[2021-08-17] MEDS ORDERED: ceFAZolin 2 GM IV Premixed 50 ML IV ONE (07:15)
[2021-08-17] MEDS ORDERED: LIDOCAINE/EPI 1%-1:200,000 (XYLOCAINE) 30 ML VIAL ONE (07:38)
[2021-08-17] MEDS ORDERED: LIDOCAINE UROJET 2% GEL 10 ML PKG ONE ×2 (07:38→08:45)
[2021-08-17] MEDS: LACTATED RINGERS 1,000 ML IV PRN ×2 (07:44→09:44)
[2021-08-17] MEDS ORDERED: MIDAZOLAM 2 MG/2 ML (VERSED) VIAL ONE (07:54)
[2021-08-17] MEDS ORDERED: fentaNYL INJ 100 MCG/2 ML AMP ONE (07:54)
--- NOTE | 2021-08-17 08:27 | Progress Note-Pre Operative ---
Pre-Operative Progress Note H&P Reviewed The H&P was reviewed, patient examined and no changes noted. Time Seen by Provider: 08:24 Date H&P Reviewed: Aug 17, 2021 Time H&P Reviewed: 08:24 Pre-Operative Diagnosis: genital warts BAKARI JUAREZ DO Aug 17, 2021 08:27
[2021-08-17] MEDS ORDERED: LIDOCAINE PF 2% 5 ML (XYLOCAINE) VIAL ONE (08:54)
[2021-08-17] MEDS ORDERED: proPOfol 200 MG/20 ML (DIPRIVAN) VIAL IV ONE (08:54)
[2021-08-17] MEDS ORDERED: ONDANSETRON 4 MG/2 ML (SDV) Z0FRAN ONE (08:54)
[2021-08-17] MEDS ORDERED: SEVOFLURANE (ULTANE) 15 ML INHAL SOLN ONE (08:55)
--- NOTE | 2021-08-17 09:09 | Progress Note-Post Operative ---
Post-Operative Progess Note Surgeon (s)/Sales Development Director (s) Surgeon BAKARI JUAREZ DO Sales Development Director: none Pre-Operative Diagnosis genital warts Post-Operative Diagnosis same Procedure & Operative Findings Date of Procedure 08/17/21 Procedure Performed/Findings Exc warts appx 5.5cm x 1cm Destruction warts appx 4cm x 1cm Anesthesia Type LMA Estimated Blood Loss Estimated blood loss (mL): none Specimens/Packing Specimens Removed BAKARI Adams DO Aug 17, 2021 09:09
[2021-08-17] MEDS ORDERED: ACHD5005 PO (09:10)
--- NOTE | 2021-08-17 09:11 | Discharge Inst-Surgical ---
Discharge Inst-Surgical Depart Medication/Instructions New, Converted or Re-Newed RX: Transmitted to Pharmacy Patient Instructions Follow up Appt: Make appointment for 1 week. [phone] Instructions: May shower in 24 hours, no tub bath or soaking. Use incentive spirometer at home as directed. No Smoking Skin/Wound Care: Lidocaine cream and skin cream with no alcohol. Symptoms to Report: Appetite Changes, Extremity Discoloration, Numbness/Tingling, Swelling Increased, Bleeding Excessive, Eyesight Changes, Pain Increased, Urine Color Change, Constipation(Persistent), Fever over 101 degree F, Pain/Pressure in [address], Urinating Difficulty, Cough Up/Vomit Blood, Heart Beat Irreg/Pounding, Pain/Pressure in jaw, Cramps in feet or legs, Lightheadedness, Pain/Pressure in shoulder, Diarrhea(Persistent), Memory Changes Suddenly, Questions/Concerns, Weight gain consecutive days, Dizziness/Fainting, Nausea/Vomiting, Shortness of Breath, Weight gain over 2 pounds If questions or concerns contact your physician Or seek help at emergency department. Activity Activity as Tolerated: Yes Driving Instructions: No Driving/Refer to Dr. Thomas Discharge Diet: No Restrictions Diet After 24 Hours: Clear Liquid if Nauseous If Any Problems/Questions/Issu: Contact Your Physician, Go to Emergency Room Skin/Wound Care Infection Signs and Symptoms: Increased Redness, Foul Odor of Wound, Increased Drainage, Skin Itchy or Has a Rash, Increased Swelling, Temperature Above 101 F Bathing Instructions: Shower Ice Pack: Ice On and Off Site BAKARI JUAREZ DO Aug 17, 2021 09:11
--- NOTE | 2021-08-17 09:21 | Anesthesia-General Post-Op ---
General Patient Condition Mental Status/LOC: Same as Preop Cardiovascular: Satisfactory Nausea/Vomiting: Absent Respiratory: Satisfactory Pain: Controlled Complications: Absent Post Op Complications Complications None Follow Up Care/Instructions Patient Instructions None needed. Anesthesia/Patient Condition Patient Condition Patient is doing well, no complaints, stable vital signs, no apparent adverse anesthesia problems. No complications reported per nursing. JONELLE BANKS CRNA Aug 17, 2021 09:21
[2021-08-17] MEDS ORDERED: ONDANSETRON 4 MG/2 ML (SDV) Z0FRAN IVP PRN (09:30)
[2021-08-17] MEDS ORDERED: morphine INJ 10 MG/ML 1ML (SYR OR VIAL) IVP ONE (09:30)
[2021-08-17] MEDS ORDERED: fentaNYL INJ 100 MCG/2 ML AMP IVP ONE (09:30)
--- NOTE | 2021-08-17 17:31 | OPERATIVE REPORT ---
DATE OF SERVICE: 08/17/2021 PREOPERATIVE DIAGNOSIS: Genital warts. POSTOPERATIVE DIAGNOSIS: Genital warts. PROCEDURES PERFORMED: 1. Excision of genital warts 5.5 x 1 cm area. 2. Destruction of genital warts on a 4 x 1 cm area. SURGEON: Melvin Carranza DO. ZINC MINER BLASTING: None. ANESTHESIA: LMA. SPECIMEN: Genital warts. BLOOD LOSS: Scant. FLUIDS: Per anesthesia. POSTOPERATIVE CONDITION: Stable. INDICATION FOR PROCEDURE: The patient is a 36-year-old male with history of HIV with genital warts on the shaft of his penis as well as in the inguinal crease, some were very large, protruding. He wanted to get these removed. FINDINGS: The patient had genital warts were removed in the area and destruction of some of these warts. PROCEDURE NOTE: After informed consent was obtained, the patient was brought to the operating room and placed on the operating table in a supine position. He was sterilely prepped and draped in normal fashion. Using a blue needlepoint cautery, I first started taking off the large warts that were growing up and above the skin. Many of these were a half a centimeter to a centimeter long, started cutting these off the base, right along the shaft of the penis, cut off about a 5.5cm x 1 cm area of warts, not all contiguous. There were other areas of slightly raised genital warts and some of these the base was too broad to try and cut them off, but elected to do some destruction of the warts with the Bovie cautery. This was a 4 x 1 cm, again not all contiguous. Once this was done, the area was then cleaned and dried. Lidocaine gel was placed and the patient was then transferred to recovery room in a stable condition. Sponge, instrument and needle count correct at the end of the case. Job ID: [id number] DocumentID: [id number] Dictated Date: 08/17/2021 14:03:15 Stripping Shovel Oiler Date: 08/17/2021 17:30:18 Dictated By: MELVIN CARRANZA DO [facility]
== END 2021-08-17 10:30 | disposition home or self-care (01) ==
LOC: SDC 06:54
PROVIDERS: ATTEND Surgery
DX: A63.0 Anogenital (venereal) warts (principal); I10 Essential (primary) hypertension; Z79.899 Other long term (current) drug therapy
CPT/HCPCS: 87081; 88305

== ENCOUNTER 2022-12-21 05:37 | Outpatient (CLI) | payer OTHER ==
[~2022-12-21] VITALS: Ht 193 cm; Wt 117.0 kg
[~2022-12-21 05:37] MED LIST changes: +ACHD5005 PO; +FLUC50TA22 PO; -FLUC50TA5 PO; +VALG450T15 PO; -VALG450T3 PO
[2022-12-21] MEDS ORDERED: TIOT18CA2 IH (14:29)
[2022-12-21] MEDS ORDERED: LIDO700A45 TP (14:29)
== END 2022-12-21 14:41 | disposition home or self-care (01) ==
LOC: PREOP 05:37
PROVIDERS: ATTEND Surgery
DX: Z01.818 Encounter for other preprocedural examination (principal)

== ENCOUNTER 2022-12-28 08:30 | Day surgery (SDC) | payer BC, OTHER ==
[~2022-12-28] VITALS: Ht 193 cm; Wt 117.0 kg
[2022-12-28] VITALS (13 sets, daily range): BP systolic 101–136; BP diastolic 66–89
[~2022-12-28 08:30] MED LIST changes: +LIDO700A45 TP; +TIOT18CA2 IH
[2022-12-28] MEDS ORDERED: BUP/EPI 0.5% 1:200,000 (SENSORCAINE) 30 ML VIAL ONE (08:59)
--- NOTE | 2022-12-28 09:35 | Progress Note-Pre Operative ---
Pre-Operative Progress Note Date of Available H&P: December 14, 2022 Date H&P Reviewed: Dec 28, 2022 Time H&P Reviewed: 09:34 History & Physical: H&P Reviewed, Patient Examed, No changes noted Pre-Operative Diagnosis: Anal Warts BAKARI JUAREZ DO Dec 28, 2022 09:35
[2022-12-28] MEDS ORDERED: fentaNYL INJ 100 MCG/2 ML AMP ONE ×2 (09:40→09:57)
[2022-12-28] MEDS ORDERED: NS (IVPB) 50 ML ONE (09:40)
[2022-12-28] MEDS ORDERED: ceFAZolin INJECTION 2,000 MG ONE (09:40)
[2022-12-28] MEDS ORDERED: fentaNYL INJ 100 MCG/2 ML AMP IVP ONE (09:45)
[2022-12-28] MEDS ORDERED: LACTATED RINGERS 1,000 ML IV PRN (09:45)
[2022-12-28] MEDS ORDERED: ceFAZolin INJECTION 2,000 MG in NS (IVPB) 50 ML IV ONE (09:45)
[2022-12-28] MEDS ORDERED: MIDAZOLAM 2 MG/2 ML (VERSED) VIAL ONE (09:57)
[2022-12-28] MEDS ORDERED: ONDANSETRON 4 MG/2 ML (SDV) Z0FRAN ONE (09:57)
[2022-12-28] MEDS ORDERED: proPOfol 200 MG/20 ML (DIPRIVAN) VIAL IV ONE (09:57)
[2022-12-28] MEDS ORDERED: LIDOCAINE PF 2% 5 ML (XYLOCAINE) VIAL ONE (09:57)
[2022-12-28] MEDS ORDERED: HYDROmorphone 2 MG/ML VIAL (DILAUDID) ONE (10:14)
[2022-12-28] MEDS ORDERED: BUP/EPI 0.5% 1:200,000 (SENSORCAINE) 30 ML VIAL INJ ONE (10:37)
[2022-12-28] MEDS ORDERED: SEVOFLURANE (ULTANE) 15 ML INHAL SOLN ONE (10:43)
--- NOTE | 2022-12-28 10:54 | Progress Note-Post Operative ---
Post-Operative Progess Note Surgeon (s)/Pulverizer Feeder (s) Surgeon BAKARI JUAREZ DO Pulverizer Feeder: none Pre-Operative Diagnosis Anal Warts Post-Operative Diagnosis Anal Warts [place]-rectal Abscess Right Gluteal lesion Procedure & Operative Findings Date of Procedure 12/28/22 Procedure Performed/Findings Excision of Anal warts on left, 5.5 x 3.4cm I&D of [place]-rectal abscess with packing Destruction of anal warts, 6 x 3cm and 2 x 1.5cm Excision of gluteal lesion, 1.9cm Anesthesia Type LMA Estimated Blood Loss Estimated blood loss (mL): appx 50ml Specimens/Packing Specimens Removed abscess culture anal warts gluteal lesion Packin BAKARI JUAREZ DO Dec 28, 2022 10:54
[2022-12-28] MEDS ORDERED: ACHYD1T PO (11:00)
[2022-12-28] MEDS ORDERED: MEPERIDINE (DEMEROL) INJ 50 MG/ML ONE (11:02)
--- NOTE | 2022-12-28 11:02 | Discharge Inst-Surgical ---
Discharge Inst-Surgical Depart Medication/Instructions New, Converted or Re-Newed RX: Transmitted to Pharmacy Patient Instructions Follow up Appt: Make appointment for 1 week. [phone] Instructions: No lifting greater than 20 pounds. No strenuous activity. May shower in 24 hours, no tub bath or soaking. Use incentive spirometer at home as directed. No Smoking Skin/Wound Care: May remove bandages in am. You need to leave the Packing in place and change it daily, starting Sunday. Symptoms to Report: Appetite Changes, Extremity Discoloration, Numbness/Tingling, Swelling Increased, Bleeding Excessive, Eyesight Changes, Pain Increased, Urine Color Change, Constipation(Persistent), Fever over 101 degree F, Pain/Pressure in chest, Urinating Difficulty, Cough Up/Vomit Blood, Heart Beat Irreg/Pounding, Pain/Pressure in jaw, Cramps in feet or legs, Lightheadedness, Pain/Pressure in shoulder, Diarrhea(Persistent), Memory Changes Suddenly, Questions/Concerns, Weight gain consecutive days, Dizziness/Fainting, Nausea/Vomiting, Shortness of Breath, Weight gain over 2 pounds If questions or concerns contact your physician Or seek help at emergency department. Activity Activity as Tolerated: Yes Activity Instructions: Avoid Stress to Incision Diet Discharge Diet: No Restrictions Diet After 24 Hours: Clear Liquid if Nauseous If Any Problems/Questions/Issu: Contact Your Physician, Go to Emergency Room Skin/Wound Care Infection Signs and Symptoms: Increased Redness, Foul Odor of Wound, Increased Drainage, Skin Itchy or Has a Rash, Increased Swelling, Temperature Above 101 F Bathing Instructions: BAKARI Duarte DO Dec 28, 2022 11:02
[2022-12-28] MEDS ORDERED: morphine INJ 10 MG/ML 1ML (SYR OR VIAL) IVP ONE (11:15)
[2022-12-28] MEDS ORDERED: HYDROmorphone 2 MG/ML VIAL (DILAUDID) IV ONE (11:15)
[2022-12-28] MEDS ORDERED: ONDANSETRON 4 MG/2 ML (SDV) Z0FRAN IVP PRN (11:15)
[2022-12-28] MEDS ORDERED: MEPERIDINE (DEMEROL) INJ 50 MG/ML IVP ONE (11:15)
--- NOTE | 2022-12-28 11:34 | Anesthesia-General Post-Op ---
General Patient Condition Mental Status/LOC: Same as Preop Cardiovascular: Satisfactory Nausea/Vomiting: Absent Respiratory: Satisfactory Pain: Controlled Complications: Absent Post Op Complications Complications None Follow Up Care/Instructions Patient Instructions None needed. Anesthesia/Patient Condition Patient Condition Patient is awake in PACU and doing well. He does C/O pain as preop, which is unfortunately to be expected. Pain medicine has been given with some relief. He has stable vital signs, no apparent adverse anesthesia problems. No complications reported per nursing. TOBY POPE DO Dec 28, 2022 11:34
--- NOTE | 2022-12-28 18:55 | OPERATIVE REPORT ---
DATE OF SERVICE: 12/28/2022 PREOPERATIVE DIAGNOSIS: Anal warts. POSTOPERATIVE DIAGNOSES: 1. Anal warts. 2. Perirectal abscess. 3. Right gluteal lesion. PROCEDURES: 1. Excision of anal warts on the left, approximately 5.5 x 3.4 cm. 2. Incision and drainage of perirectal abscess with packing. 3. Destruction of anal warts area measuring 6 x 3 cm and then 2 x 1.5 cm. 4. Excision of gluteal lesion, approximately 1.9 cm lesion. SURGEON: Melvin Carranza DO DISPLAY COORDINATOR: None. ANESTHESIA: LMA. SPECIMEN: Abscess culture. Anal warts. Gluteal lesion. BLOOD LOSS: Approximately 50 mL FLUIDS: Per anesthesia. POSTOPERATIVE CONDITION: Stable. INDICATIONS FOR PROCEDURE: The patient is a 37-year-old male who had anal warts, wanted to get these removed. FINDINGS: The patient had a very large area of anal warts on the left and right anal canal and gluteal cheeks. He also had a lesion on the right and we found purulent fluid coming from the lesion on the [ ] anal warts on the left gluteal cheek and then found a perirectal abscess on the right. PROCEDURE NOTE: After informed consent was obtained, the patient was brought to the operating room and placed on the table in the lithotomy position. He was then sterilely prepped and draped in normal fashion. Looking at this area, the anal warts were larger than expected. There was also large gluteal mass on the right cheek, could see purulent fluid coming out of what looked like the middle of the warts on the left and then when I palpated on the right, I could feel a fullness. [ ] I felt that this was going to be an abscess. Infiltrated the skin over this abscess area, was on the kind of the right gluteal cheek towards the right inguinal area and then under the anal warts on the left and the right with local. I then elected first to make an incision right over this fullness down through the skin into subcutaneous tissue, immediately got out purulent fluid, got a culture of this and then opened this up to break up the loculations. This went up towards the inguinal canal. I was unable to find any crossing over the midline, but obviously it did because there was purulent fluid coming out of the left side. Copiously irrigated this with normal saline. Hemostasis was obtained with Bovie electrocautery. I packed this with a sponge and then I turned my attention to the anal warts on the left. Started taking these off, tried to see if I could find if there is connection of the opening for the abscess and the purulent fluid was coming out. I could not find anything. I excised an area of about 5.5 x 3.4 cm. There was a little bit of bleeding. This was controlled with Bovie electrocautery. At this point, I did not want to create holes and I elected to destroy the rest of the warts with the cautery. I did on the left side of the area about 2 x 1.5 cm. On the right, I did an area of 6 x 3 cm and then there was a large lesion on the right gluteal cheek. I removed this with Bovie electrocautery, right at the base. This was about 1.9 cm lesion. This was passed off the table. There was no bleeding at the end of the case, this had been controlled with some pressure as well as Bovie electrocautery. I then elected to pack the perirectal abscess cavity with 1-inch iodoform packing. About 3/4 of the bottle was packed. Once this was done, area was cleaned and dried. Dressings placed, some Telfa and the patient was then transferred to recovery room in stable condition. Sponge, instrument and needle count correct at the end as the case. Job ID: [id number] DocumentID: [id number] Dictated Date: 12/28/2022 10:59:50 Composition Stone Applicator Date: 12/28/2022 18:53:00 Dictated By: MELVIN CARRANZA DO
== END 2022-12-28 14:05 | disposition home or self-care (01) ==
LOC: SDC 08:30
PROVIDERS: ATTEND Surgery
DX: C44.520 Squamous cell carcinoma of anal skin (principal); L82.1 Other seborrheic keratosis; A63.0 Anogenital (venereal) warts; K61.1 Rectal abscess; L98.8 Other specified disorders of the skin and subcutaneous tissue; F17.210 Nicotine dependence, cigarettes, uncomplicated
CPT/HCPCS: 87070; 87075; 87076; 87081; 87185; 87205

== ENCOUNTER 2023-01-10 11:20 | Outpatient (RCR) | payer OTHER ==
[~2023-01-10] VITALS: Ht 193 cm; Wt 117.5 kg
[~2023-01-10 11:20] MED LIST changes: +ACHYD1T PO
[2023-01-10 12:02] LABS: BASOPHILS # (AUTO) 0.1 10^3/uL (0.0-0.1); BASOPHILS % (AUTO) 1 % (0-10); EOSINOPHILS # (AUTO) 0.4 10^3/uL (0.0-0.3); EOSINOPHILS % (AUTO) 4 % (0-10); HEMATOCRIT 41 % (40-54); HEMOGLOBIN 13.6 g/dL (13.3-17.7); LYMPHOCYTES # (AUTO) 1.5 10^3/uL (1.0-4.0); LYMPHOCYTES % (AUTO) 18 % (12-44); MEAN CORPUSCULAR HEMOGLOBIN 30 pg (25-34); MEAN CORPUSCULAR HGB CONC 33 g/dL (32-36); MEAN CORPUSCULAR VOLUME 91 fL (80-99); MEAN PLATELET VOLUME 8.8 fL (9.0-12.2); MONOCYTES # (AUTO) 0.6 10^3/uL (0.0-1.0); MONOCYTES % (AUTO) 7 % (0-12); NEUTROPHILS # (AUTO) 5.8 10^3/uL (1.8-7.8); NEUTROPHILS % (AUTO) 69 % (42-75); PLATELET COUNT 316 10^3/uL (130-400); WHITE BLOOD COUNT 8.3 10^3/uL (4.3-11.0)
[2023-01-10 12:21] LABS: ALBUMIN 4.3 GM/DL (3.2-4.5); BILIRUBIN,TOTAL 0.5 MG/DL (0.1-1.0); CALCIUM 9.4 MG/DL (8.5-10.1); CREATININE SERUM 1.14 MG/DL (0.60-1.30); POTASSIUM 4.4 MMOL/L (3.6-5.0); TOTAL PROTEIN 7.8 GM/DL (6.4-8.2)
[2023-01-11] MEDS ORDERED: NS IV SCH ×3 (14:45→15:15)
[2023-01-11] MEDS ORDERED: HEParin (CENTRAL IV FLUSH) 500 UNIT/5 ML SYR IV PRN (14:45)
[2023-01-11] MEDS ORDERED: ONDANSETRON IV SCH (14:45)
[2023-01-11] MEDS ORDERED: NS IV 1000 ML (CANCER CTR) IV SCH (14:45)
[2023-01-11] MEDS ORDERED: [UNRECOGNIZED DRUG - OTHER] IV SCH (14:45)
[2023-01-11] MEDS ORDERED: FLUOROURACIL IV SCH (14:45)
[2023-01-11] MEDS ORDERED: DEXAMETHASONE SODIUM PHOSPHATE IV SCH (14:45)
[2023-01-11] MEDS ORDERED: MITOMYCIN IV SCH ×2 (15:00→15:15)
[2023-01-15] MEDS ORDERED: TRZ50T PO (14:58)
[2023-01-15] MEDS ORDERED: CLIN-144 PO (14:59)
[2023-01-15] MEDS ORDERED: ACET-2267 PO (15:00)
[2023-01-15] MEDS ORDERED: IBUP-2473 PO (15:01)
[2023-01-16] MEDS ORDERED: CLIN-144 PO (10:22)
[2023-01-16] MEDS ORDERED: OXC5T PO (10:22)
[2023-01-24] MEDS ORDERED: OXC5T PO (09:50)
== END 2023-01-19 | disposition home or self-care (01) ==
LOC: ONC 11:20
PROVIDERS: ATTEND Internal Medicine Hematology & Oncology
DX: C44.520 Squamous cell carcinoma of anal skin (principal)
CPT/HCPCS: 80053; 85025

== ENCOUNTER 2023-01-15 09:04 | Inpatient (IN) | payer OTHER ==
[~2023-01-15] VITALS: Ht 193 cm; Wt 118.0 kg
[2023-01-15] VITALS (14 sets, daily range): BP systolic 95–122; BP diastolic 53–82
[2023-01-15] MEDS ORDERED: ACETAMINOPHEN 325 MG TABLET PO PRN (09:30)
[2023-01-15] MEDS ORDERED: MELATONIN 3 MG TABLET PO PRN (09:30)
[2023-01-15] MEDS ORDERED: ONDANSETRON 4 MG/2 ML (SDV) Z0FRAN IV PRN (09:30)
[2023-01-15] MEDS ORDERED: ANTACID SUSP 30 ML UDC (MYLANTA) PO PRN (09:30)
[2023-01-15] MEDS ORDERED: BISACODYL 10 MG SUPP (DULCOLAX) PR PRN (09:30)
[2023-01-15] MEDS ORDERED: polyethylene glycoL POWDER 17 GM (MIRALAX) PACK PO PRN (09:30)
[2023-01-15] MEDS ORDERED: VANCOMYCIN INJECTION 0.1 MG in NS (IVPB) 250 ML IV SCH (09:30)
[2023-01-15] MEDS ORDERED: LACTULOSE SYRUP 10GM/15ML (ENULOSE) 30ML UDC PO PRN (09:30)
[2023-01-15] MEDS ORDERED: diphenhydrAMINE 25 MG TAB (BENADRYL) PO PRN (09:30)
[2023-01-15] MEDS ORDERED: ONDANSETRON 4 MG (ZOFRAN) ORAL DISSOLVE TAB PO PRN (09:30)
[2023-01-15] MEDS ORDERED: NS IV 1000 ML 1,000 ML IV SCH (09:30)
[2023-01-15] MEDS ORDERED: diphenhydrAMINE 50 MG/ML INJ (BENADRYL) IVP PRN (09:30)
[2023-01-15] MEDS ORDERED: CALCIUM CARBONATE 500 MG (TUMS) TAB.CHEW PO PRN (09:30)
[2023-01-15] MEDS ORDERED: MILK OF MAGNESIA 400 MG/5 ML 30 ML UDC PO PRN (09:30)
--- NOTE | 2023-01-15 09:34 | History & Physical ---
History of Present Illness HPI/Chief Complaint Chief complaint: Perirectal abscess HPI: This is a 37-year-old male who has a history of HIV with CD4 court of [address] Sarabia who presented as a direct admission from Dr. Sarabia's clinic with recurrent perianal abscess. He was placed on Augmentin initially then when it worsened he was changed to clindamycin. Dr. Carranza was consulted. Pelvic CT will be obtained. IV antibiotics initiated empirically. Source: patient Exam Limitations: no limitations Date Seen 01/15/23 Time Seen by a Provider: 09:30 Attending Physician Breanne Sarabia MD PCP Admitting Physician: Betty Lambert DO Attending Physician: Betty Lambert DO Referring Physician Date of Admission Jan 15, 2023 at 09:25 Home Medications & Allergies Home Medications Reviewed patient Home Medication Reconciliation performed by pharmacy medication reconciliations utility technician and/or nursing. Patients Allergies have been reviewed. Allergies Allergies Coded Allergies No Known Drug Allergies (Unverified12/21/22) Past Ihmbjdi-Sggjhe-Upvomc Hx Past Med/Social Hx: Reviewed Nursing Past Med/Soc Hx, Reviewed and Corrections made Patient Social History Marrital Status: cohabiting Employed/Student: employed Alcohol Use: Occasionally Uses Smoking Status: Current Everyday Smoker Type Used: Cigarettes 2nd Hand Smoke Exposure: No Recent Hopitalizations: No Immunizations Up To Date Date of Pneumonia Vaccine: Oct 04, 2022 Date of Influenza Vaccine: Jul 25, 2021 Seasonal Allergies Seasonal Allergies: Yes Past Medical History Surgeries: Orthopedic Currently Using CPAP: No Currently Using BIPAP: No HIV/AIDS: Yes (diagnosed ) Musculoskeletal: Arthritis History of Blood Disorders: Yes (ANEMIA) Review of Systems Constitutional: see HPI, dizziness, malaise, weakness Physical Exam Physical Exam Vital Signs Vital Signs - First Documented 01/15/23 09:30 Temp 35.5 Pulse 102 Resp 18 B/P (MAP) 122/76 (91) Pulse Ox 96 O2 Delivery Room Air Capillary Refill : Height, Weight, BMI Height: '" Weight: lbs. oz. kg; 31.41 BMI Method: General Appearance: No Apparent Distress, WD/WN, Chronically ill Eyes: Bilateral Eye Normal Inspection, Bilateral Eye PERRL HEENT: PERRL/EOMI, Normal ENT Inspection, Pharynx Normal Neck: Full Range of Motion, Normal Inspection, Non Tender, Supple, Carotid Bruit Respiratory: Chest Non Tender, Lungs Clear, Normal Breath Sounds, No Accessory Muscle Use, No Respiratory Distress Cardiovascular: Regular Rate, Rhythm, No Edema, No Gallop, No JVD, No Murmur, Normal Peripheral Pulses, Tachycardia Gastrointestinal: Normal Bowel Sounds, No Organomegaly, No Pulsatile Mass, Non Tender, Soft Back: Normal Inspection, No CVA Tenderness, No Vertebral Tenderness Extremity: Normal Capillary Refill, Normal Inspection, Normal Range of Motion, Non Tender, No Calf Tenderness, No Pedal Edema Neurologic/Psychiatric: Alert, Oriented x3, No Motor/Sensory Deficits, Normal Mood/Affect Skin: Normal Color, Warm/Dry, Other (Abscess and erythema of the buttocks) Lymphatic: No Adenopathy Results Results/Procedures Labs Laboratory Tests 01/15/23 09:50 Patient resulted labs reviewed. Assessment/Plan Admission Diagnosis Assessment: Perirectal abscess failed oral antibiotics Sepsis HIV Recent anal wart surgical removal Plan: IV antibiotics Dr. 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
--- NOTE | 2023-01-15 09:55 | Consultation - Surgery ---
DESTINEE OSPINA 01/15/23 0955: History of Present Illness History of Present Illness Patient Consulted On(dian/time) 01/15/23 09:48 Date Seen by Provider: Jan 15, 2023 Time Seen by Provider: 09:45 History of Present Illness Patient presents for a cyst on his left gluteal cleft that he had noticed yesterday. He had previously had cyst removed 3 weeks prior. Says that it is big and painful. Has not tried to put any type of topical ointments on it prior. Had 1 cyst taken off each leg prior. He described it as sharp and achy pain. 8/10 pain since it started, if he is sitting then he rates it as a 12/10. Does not recall any specific event that brought it on. Allergies and Home Medications Allergies Coded Allergies: No Known Drug Allergies (Unverified , 12/21/22) Patient Home Medication List Bictegrav/Emtricit/Tenofov Ala (Biktarvy 50-200-25 mg Tablet) 1 Each Tablet, 1 EACH PO DAILY, (Reported) Entered as Reported by: NELIA BROWN on 12/13/20 0851 Hydrocodone Bit/Acetaminophen (HYDROcodone/APAP 10/325 TABLET) 1 Ea Tab, 1 TAB PO Q6H Prescribed by: BAKARI JUAREZ on 12/28/22 1101 Lidocaine (Lidocaine 5% Patch) 5 % Adh..patch, 1 EACH TP UD PRN for Neuropathic pain, (Reported) Entered as Reported by: FRANCISCA OLIVER on 12/21/22 1429 Sulfamethoxazole/Trimethoprim (Bactrim Ds Tablet) 1 Each Tablet, 1 EA PO MO,ROBERT,FR, (Reported) Entered as Reported by: TU DE LOS SANTOS on 03/15/21 1002 Tiotropium [place] (Spiriva) 18 Mcg Aerp, 1 INH IH DAILY, (Reported) Entered as Reported by: FRANCISCA OLIVER on 12/21/22 1429 Past Kxclham-Qkamdj-Dscrxe Hx Patient Social History Smoking Status: Current Everyday Smoker Type Used: Cigarettes 2nd Hand Smoke Exposure: No Recent Hopitalizations: No Physical Abuse Screen: No Sexual Abuse: No Alcohol Use?: No Immunizations Up To Date Tetanus Booster (TDap): Less than 5yrs Date of Pneumonia Vaccine: Oct 04, 2022 Date of Influenza Vaccine: Jul 25, 2021 Seasonal Allergies Seasonal Allergies: Yes Surgeries History of Surgeries: Yes (RUPT DISC BACK SURG, SPINAL FUSION, DENTAL SURG) Surgeries: Orthopedic (Back surgery in 2010) Respiratory History of Respiratory Disorde: Yes Respiratory Disorders: COPD (2021 diagnosed) Cardiovascular History of Cardiac Disorders: No (2013 ENDOCARDITIS) Neurological History of Neurological Disord: No Reproductive System HIV/AIDS: Yes (diagnosed ) Genitourinary History of Genitourinary Disor: No Gastrointestinal History of Gastrointestinal Di: No Musculoskeletal History of Musculoskeletal Dis: Yes (BACK SURGERY x2) Musculoskeletal Disorders: Arthritis Endocrine History of Endocrine Disorders: No HEENT History of HEENT Disorders: No Cancer History of Cancer: Yes Cancer: Rectal (recent diagnosis) Psychosocial History of Psychiatric Problem: No Integumentary History of Skin or Integumenta: Yes (PENILE WARTS, ANAL) Blood Transfusions History of Blood Disorders: Yes (ANEMIA) Family Medical History Significant Family History: No Pertinent Family Hx Review of Systems-General Constitutional: No chills; diaphoresis ("sweating more than the devils crotch in mid January"); No dizziness; fever; No malaise EENTM: No hearing loss, No ear pain, No eye pain, No tearing, No epistaxis Respiratory: No cough, No hemoptysis, No short of breath Cardiovascular: No chest pain, No edema, No palpitations, No syncope Gastrointestinal: LLQ; No constipation, No diarrhea, No dysphagia, No hematemesis, No melena, No nausea, No vomiting Genitourinary: No dysuria, No frequency, No hematuria, No hesitancy Musculoskeletal: back pain; No joint pain, No joint swelling Skin: No change in hair/nails, No dryness; lumps (left gluteal cheek) Psychiatric/Neurological: Denies Anxiety, Denies Depressed Physical Exam-General Problems Physical Exam Vital Signs Capillary Refill : General Appearance: WD/WN, no apparent distress Eyes: Bilateral Eye PERRL, Bilateral Eye EOMI Neck: non-tender, supple; No lymphadenopathy (R), No lymphadenopathy (L) Respiratory: No chest non-tender; no respiratory distress, no accessory muscle use; No crackles, No rales Cardiovascular: regular rate, rhythm, no edema, no gallop, no murmur Peripheral Pulses: 4+ Carotid (R), 4+ Carotid (L), 4+ Radial Pulses (R), 4+ Radial Pulses (L) Gastrointestinal: normal bowel sounds, soft, guarding (conscious), tenderness Rectal: mass (2 cm cyst ronna left lower gluteal fold. ), tenderness (palpation of cyst) Back: no CVA tenderness, no vertebral tenderness Extremities: normal range of motion, non-tender, no pedal edema, no calf tenderness Neurologic/Psychiatric: alert, normal mood/affect, oriented x 3 Lymphatic: no adenopathy Assessment/Plan Assessment/Plan Assessment/Plan Cyst to left gluteal fold. BAKARI JUAREZ DO 01/15/23 1457: History of Present Illness History of Present Illness Time Seen by Provider: 14:41 History of Present Illness Surgery consulted regarding gluteal abscess. Pt is well known to me, I had just done a right inguinal abscess and excised anal warts. Pt states he has not had one in this area before; all the work done previously was a different spot. Allergies and Home Medications Allergies Coded Allergies: No Known Drug Allergies (Unverified , 12/21/22) Patient Home Medication List Home Medication List Reviewed: Yes Bictegrav/Emtricit/Tenofov Ala (Biktarvy 50-200-25 mg Tablet) 1 Each Tablet, 1 EACH PO DAILY, (Reported) Entered as Reported by: NELIA BROWN on 12/13/20 0851 Hydrocodone Bit/Acetaminophen (HYDROcodone/APAP 10/325 TABLET) 1 Ea Tab, 1 TAB PO Q6H Prescribed by: BAKARI JUAREZ on 12/28/22 1101 Lidocaine (Lidocaine 5% Patch) 5 % Adh..patch, 1 EACH TP UD PRN for Neuropathic pain, (Reported) Entered as Reported by: FRANCISCA OLIVER on 12/21/22 1429 Sulfamethoxazole/Trimethoprim (Bactrim Ds Tablet) 1 Each Tablet, 1 EA PO MO,WE,FR, (Reported) Entered as Reported by: TU DE LOS SANTOS on 03/15/21 1002 Tiotropium [place] (Spiriva) 18 Mcg Aerp, 1 INH IH DAILY, (Reported) Entered as Reported by: FRANCISCA OLIVER on 12/21/22 1429 Past Cizabcf-Itzyfq-Iimpcn Hx Patient Social History Smoking Status: Current Everyday Smoker Physical Abuse Screen: No Sexual Abuse: No Alcohol Use?: No Immunizations Up To Date Tetanus Booster (TDap): Less than 5yrs Surgeries History of Surgeries: Yes (I&D right inguinal, removal of anal warts) Surgeries: Orthopedic (Back surgery in 2010) Respiratory History of Respiratory Disorde: Yes Respiratory Disorders: COPD (2021 diagnosed) Cardiovascular History of Cardiac Disorders: No Neurological History of Neurological Disord: No Reproductive System Sexually Transmitted Disease: Yes HIV/AIDS: Yes Genitourinary History of Genitourinary Disor: No Gastrointestinal History of Gastrointestinal Di: No Musculoskeletal History of Musculoskeletal Dis: Yes Musculoskeletal Disorders: Back Injury Endocrine History of Endocrine Disorders: No HEENT History of HEENT Disorders: No Loss of Vision: Denies Hearing Impairment: Denies Cancer History of Cancer: Yes Cancer: Rectal (recent diagnosis) Family Medical History Significant Family History: Heart Disease (Pt denied in his parents), Diabetes (pt denied in his parents) Review of Systems-General Constitutional: No chills; diaphoresis ("sweating more than the devils crotch in mid January"); No dizziness; fever; No malaise EENTM: No hearing loss, No ear pain, No eye pain, No tearing, No epistaxis Respiratory: No cough, No hemoptysis, No short of breath Cardiovascular: No chest pain, No edema, No palpitations, No syncope Gastrointestinal: LLQ; No constipation, No diarrhea, No dysphagia, No hematemesis, No melena, No nausea, No vomiting Genitourinary: No dysuria, No frequency, No hematuria, No hesitancy Musculoskeletal: back pain; No joint pain, No joint swelling Skin: No change in hair/nails, No dryness; lumps (left gluteal cheek) Psychiatric/Neurological: Denies Anxiety, Denies Depressed Physical Exam-General Problems Physical Exam General Appearance: WD/WN, no apparent distress Eyes: Bilateral Eye PERRL, Bilateral Eye EOMI HEENT: pharynx normal; No scleral icterus (R), No scleral icterus (L) Neck: non-tender, supple; No lymphadenopathy (R), No lymphadenopathy (L) Respiratory: chest non-tender, no respiratory distress, no accessory muscle use; No crackles, No rales Cardiovascular: regular rate, rhythm, no murmur Gastrointestinal: normal bowel sounds, soft, guarding (conscious), tenderness Rectal: mass (2 cm cyst ronna left lower gluteal fold. ), tenderness (palpation of cyst) Back: no CVA tenderness, no vertebral tenderness Extremities: normal range of motion, non-tender, no pedal edema, no calf tenderness Neurologic/Psychiatric: alert, normal mood/affect, oriented x 3 Skin: normal color, warm/dry Lymphatic: no adenopathy (neck or axilla) Data Review Radiology Date of Exam:01/15/23 CT PELVIS WO PROCEDURE: CT pelvis without contrast. TECHNIQUE: Multiple contiguous axial images were obtained through the pelvis without the use of intravenous contrast. Sagittal and coronal reformations were performed. Auto Exposure Controls were utilized during the CT exam to meet ALARA standards for radiation dose reduction. INDICATION: Perirectal abscess There is focal ovoid region of inflammation within the subcutaneous tissues in the medial left buttock resulting in distortion of adjacent tissue however there is no significant dilatation or distention of the rectum and visible distal colon. No significant subcutaneous gas is identified. There is no significant involvement of the ischial rectal fossa or musculature. No definite fluid collection is seen. There is no free fluid in the pelvis. Unopacified bladder is unremarkable in appearance. There are surgical clips in the right inguinal canal with mildly prominent bilateral inguinal lymph nodes. There is localized L5-S1 degenerative disc disease with disc bulging and endplate spurring resulting in bilateral neural foraminal stenoses. IMPRESSION: Cellulitis and probable phlegmon within the subcutaneous tissues of the medial left buttock. Early developing abscess is not excluded. There is no evidence of ischial rectal fossa or intrapelvic extension. No other focal inflammation or acute abnormality is identified. Dictated on workstation # [id number] Dict: 01/15/23 1401 Trans: 01/15/23 1410 [facility] [id number] Interpreted by: SHAY DELA CRUZ MD Assessment/Plan Assessment/Plan Assessment/Plan Abscess of Left gluteal cheek Anal Cancer COPD HIV Plan to OR for I&D of left gluteal cheek, continue ABX, IV fluids, pain control. Discussed with pt the procedure; risks and complications not limited to pain, bleeding, infection, scar and need for further procedure. All questions answered to his satisfaction. I did discuss the case with his primary care physician and reviewed the CT images myself; I wanted to make sure this new abscess did not communicate with the previous and I don't think it does. Supervisory-Addendum Brief Verification & Attestation Participated in pt care: history, MDM, physical Personally performed: exam, history, MDM, supervision of care Care discussed with: Medical Student Procedures: n/a Verification and Attestation of Medical Student E/M Service A PA student performed and documented this service. I then reviewed and verified all information documented by the medical student and made modifications to such information, when appropriate. I personally performed a physical exam, medical decision making and then discussed any differences between the notes and made revisions as necessary to create one note. Bakari Juarez , 01/15/23 , 15:00 DESTINEE OSPINA Jan 15, 2023 09:55 BAKARI JUAREZ DO Jan 15, 2023 14:57
--- NOTE | 2023-01-15 09:56 | Diagnostic Imaging Report ---
CLINICAL INDICATION: Patient with sepsis. EXAM: Portable chest x-ray upright view. COMPARISON: Chest x-ray dated 03/14/2021. FINDINGS: Lungs/pleura: Lungs are clear. There is no pneumothorax. There is no pleural effusion. Mediastinum: Unremarkable. Pulmonary vasculature: Unremarkable. Heart: Unremarkable. Bones/extrathoracic soft tissue: Unremarkable. IMPRESSION: There is no radiographic evidence of acute cardiopulmonary process. Dictated by: Dictated on workstation # [id number]
[2023-01-15 10:03] LABS: BASOPHILS # (AUTO) 0.1 10^3/uL (0.0-0.1); BASOPHILS % (AUTO) 1 % (0-10); EOSINOPHILS # (AUTO) 0.1 10^3/uL (0.0-0.3); EOSINOPHILS % (AUTO) 1 % (0-10); HEMATOCRIT 40 % (40-54); HEMOGLOBIN 13.2 g/dL (13.3-17.7); LYMPHOCYTES # (AUTO) 1.1 10^3/uL (1.0-4.0); LYMPHOCYTES % (AUTO) 9 % (12-44); MEAN CORPUSCULAR HEMOGLOBIN 30 pg (25-34); MEAN CORPUSCULAR HGB CONC 33 g/dL (32-36); MEAN CORPUSCULAR VOLUME 91 fL (80-99); MEAN PLATELET VOLUME 9.1 fL (9.0-12.2); MONOCYTES # (AUTO) 0.8 10^3/uL (0.0-1.0); MONOCYTES % (AUTO) 7 % (0-12); NEUTROPHILS # (AUTO) 9.4 10^3/uL (1.8-7.8); NEUTROPHILS % (AUTO) 82 % (42-75); PLATELET COUNT 270 10^3/uL (130-400); WHITE BLOOD COUNT 11.5 10^3/uL (4.3-11.0)
[2023-01-15 10:12] LABS: ALBUMIN 4.4 GM/DL (3.2-4.5)
[2023-01-15 10:13] LABS: CALCIUM 9.4 MG/DL (8.5-10.1)
[2023-01-15 10:14] LABS: INR 1.1 (0.8-1.4); PROTHROMBIN TIME PATIENT 14.4 SEC (12.2-14.7); TOTAL PROTEIN 8.1 GM/DL (6.4-8.2)
[2023-01-15 10:16] LABS: BILIRUBIN,TOTAL 0.6 MG/DL (0.1-1.0)
[2023-01-15 10:18] LABS: CREATININE SERUM 1.17 MG/DL (0.60-1.30)
[2023-01-15] MEDS: NS IV 1000 ML 1,000 ML IV SCH ×2 (10:24→17:54)
[2023-01-15] MEDS: PIPERACILLIN SODIUM/TAZOBACTAM 4.5 GM in NS (IVPB) 100 ML IV SCH ×2 (10:37→17:53)
[2023-01-15 10:39] LABS: ABG BASE EXCESS -2.5 MMOL/L (-2.5-2.5); ABG OXYGEN SATURATION 94 % (94-100); ABG PCO2 30 MMHG (35-45); ABG PH 7.46 (7.37-7.43); ABG PO2 67 MMHG (79-93); ABG TCO2 22.1 MMOL/L (21.0-31.0)
[2023-01-15] MEDS: HYDROmorphone 2 MG/ML VIAL (DILAUDID) IV PRN ×2 (10:44→14:07)
[2023-01-15 10:45] LABS: ALLENS TEST YES-POS; INSPIRED O2 ROOM AIR; PATIENT TEMP 35.5; VENTILATOR NO
[2023-01-15] MEDS ORDERED: RT-ALBUTEROL SULF 2.5 MG/3 ML PRE-MIX VIAL INH PRN (11:00)
[2023-01-15] MEDS: VANCOMYCIN 1500MG/300ML PREMIX IV SCH ×2 (11:28→21:22)
[2023-01-15] MEDS: CLINDAMYCIN 600 MG/50 ML IVPB 50 ML IV SCH ×3 (11:28→21:22)
[2023-01-15] MEDS: LACTOBACILLUS ACIDOPHILUS (PROBIOTIC) CAPSULE PO SCH ×3 (11:40→17:53)
[2023-01-15] MEDS: ENOXAPARIN 40 MG/0.4 ML (LOVENOX) SYR SC SCH (11:42)
[2023-01-15 12:23] LABS: BILIRUBIN,URINE NEGATIVE (NEGATIVE); CLARITY,URINE CLEAR; COLOR,URINE YELLOW; GLUCOSE, URINE (UA) NEGATIVE (NEGATIVE); KETONES,URINE NEGATIVE (NEGATIVE); LEUKOCYTE ESTERASE ,URINE NEGATIVE (NEGATIVE); NITRITE,URINE NEGATIVE (NEGATIVE); PROTEIN,URINE TRACE (NEGATIVE)
[2023-01-15 12:34] LABS: BACTERIA,URINE NEGATIVE /HPF; SQUAMOUS EPITHELIAL CELL,UR RARE /HPF
--- NOTE | 2023-01-15 14:11 | Diagnostic Imaging Report ---
PROCEDURE: CT pelvis without contrast. TECHNIQUE: Multiple contiguous axial images were obtained through the pelvis without the use of intravenous contrast. Sagittal and coronal reformations were performed. Auto Exposure Controls were utilized during the CT exam to meet ALARA standards for radiation dose reduction. INDICATION: Perirectal abscess There is focal ovoid region of inflammation within the subcutaneous tissues in the medial left buttock resulting in distortion of adjacent tissue however there is no significant dilatation or distention of the rectum and visible distal colon. No significant subcutaneous gas is identified. There is no significant involvement of the ischial rectal fossa or musculature. No definite fluid collection is seen. There is no free fluid in the pelvis. Unopacified bladder is unremarkable in appearance. There are surgical clips in the right inguinal canal with mildly prominent bilateral inguinal lymph nodes. There is localized L5-S1 degenerative disc disease with disc bulging and endplate spurring resulting in bilateral neural foraminal stenoses. IMPRESSION: Cellulitis and probable phlegmon within the subcutaneous tissues of the medial left buttock. Early developing abscess is not excluded. There is no evidence of ischial rectal fossa or intrapelvic extension. No other focal inflammation or acute abnormality is identified. Dictated by: Dictated on workstation # [id number]
[2023-01-15] MEDS ORDERED: LACTATED RINGERS 1,000 ML IV PRN (14:15)
[2023-01-15] MEDS ORDERED: fentaNYL INJ 100 MCG/2 ML AMP ONE (14:48)
[2023-01-15] MEDS ORDERED: LIDOCAINE PF 2% 5 ML (XYLOCAINE) VIAL ONE (14:48)
[2023-01-15] MEDS ORDERED: ONDANSETRON 4 MG/2 ML (SDV) Z0FRAN ONE (14:48)
[2023-01-15] MEDS ORDERED: proPOfol 200 MG/20 ML (DIPRIVAN) VIAL IV ONE (14:48)
[2023-01-15] MEDS ORDERED: MIDAZOLAM 2 MG/2 ML (VERSED) VIAL ONE (14:48)
[2023-01-15] MEDS ORDERED: TRZ50T PO ×2 (14:58)
[2023-01-15] MEDS ORDERED: CLIN-144 PO (14:59)
[2023-01-15] MEDS ORDERED: ACET-2267 PO ×2 (15:00)
[2023-01-15] MEDS ORDERED: IBUP-2473 PO ×2 (15:01)
[2023-01-15] MEDS: RT-ALBUTEROL SULF 2.5 MG/3 ML PRE-MIX VIAL INH SCH ×2 (15:05→21:07)
[2023-01-15] MEDS ORDERED: SEVOFLURANE (ULTANE) 15 ML INHAL SOLN ONE (15:19)
[2023-01-15] MEDS ORDERED: morphine INJ 10 MG/ML 1ML (SYR OR VIAL) ONE (16:00)
[2023-01-15] MEDS ORDERED: fentaNYL INJ 100 MCG/2 ML AMP IVP ONE (16:00)
[2023-01-15] MEDS ORDERED: morphine INJ 10 MG/ML 1ML (SYR OR VIAL) IVP ONE (16:00)
[2023-01-15] MEDS ORDERED: MEPERIDINE (DEMEROL) INJ 50 MG/ML IVP ONE (16:00)
[2023-01-15] MEDS ORDERED: ONDANSETRON 4 MG/2 ML (SDV) Z0FRAN IVP PRN (16:00)
[2023-01-15] MEDS ORDERED: LACTATED RINGERS 1,000 ML IV ONE (16:12)
--- NOTE | 2023-01-15 16:19 | Progress Note-Post Operative ---
Post-Operative Progess Note Surgeon (s)/Community Service Organization Director (s) Surgeon BAKARI JUAREZ DO Community Service Organization Director: none Pre-Operative Diagnosis Left Gluteal Abscess Post-Operative Diagnosis same Procedure & Operative Findings Date of Procedure 01/15/23 Procedure Performed/Findings Incision and Drainage of left gluteal abscess with packing Anesthesia Type LMA Estimated Blood Loss Estimated blood loss (mL): appx 50ml Specimens/Packing Specimens Removed wound culture Packin BAKARI JUAREZ DO Jan 15, 2023 16:18
[2023-01-15] MEDS: DOCUSATE SODIUM 100 MG (COLACE) CAP PO SCH (21:21)
[2023-01-15] MEDS: SENNOSIDES 8.6 MG (SENOKOT) TAB PO SCH (21:21)
[2023-01-15] MEDS ORDERED: IBUPROFEN TABLET 200 MG TAB PO SCH (21:30)
[2023-01-15] MEDS ORDERED: ACETAMINOPHEN 500 MG TAB (TYLENOL) PO PRN (21:30)
--- NOTE | 2023-01-15 23:54 | OPERATIVE REPORT ---
DATE OF SERVICE: 01/15/2023 PREOPERATIVE DIAGNOSIS: Left gluteal abscess. POSTOPERATIVE DIAGNOSES: 1. Left gluteal abscess. 2. Right gluteal abscess. PROCEDURE: Incision and drainage of left gluteal abscess with packing as well as opening right gluteal previous abscess and packing. SURGEON: Melvin Carranza DO BLOCK CHOPPER HAND: None. ANESTHESIA: LMA. BLOOD LOSS: Approximately 50 mL. FLUIDS: Per anesthesia. POSTOPERATIVE CONDITION: Stable. SPECIMENS: Wound culture. INDICATIONS FOR PROCEDURE: The patient is a 37-year-old male who presented first to his primary care, he was feverish, had a new abscess in the gluteal aspect and he was sent to the hospital. He had a CAT scan performed, which showed what looked to be a small abscess on the left gluteal cheek. It was elected to take him to the OR to drain this with possible packing. FINDINGS: The patient had a left gluteal abscess was actually larger than was a suspected on the CAT scan and he actually had some purulence leaking from the previous drainage on the right side in the groin. PROCEDURE NOTE: After informed consent was obtained, the patient was brought to the operating room and placed on the table in lithotomy position. He was sterilely prepped and draped in normal fashion. On the left cheek could see a fullness, there was a fluctuant, made an incision with #15 blade, carried down through the skin into the subcutaneous tissue, immediately got out purulent fluid, also coming out at the same spot previously on where he had anal warts and squamous cancer identified, there was also some pus coming out there and then from the right inguinal incision, there is also draining some pus, opened the right side bluntly, again palpated, went up a little bit tunneling towards superiorly and coming across, but did not cross the midline. The abscess on the left gluteal cheek went down about 6 to 7 cm and also went up towards the groin and could be felt going towards the area was opened where he had this squamous cell cancer. Once I got all of the purulent fluid out, I then copiously flushed all of the areas was approximately 600 mL of normal saline. There was some mild bleeding. I then elected again tried to feel, it did not cross the midline and so I packed the right side with half-inch iodoform and then packed the left side with half-inch iodoform using almost up the whole bottle on both sides. Area was then cleaned and dried, dressings placed. The patient tolerated the procedure. Sponge and needle count correct at the end. Job ID: [id number] DocumentID: [id number] Dictated Date: 01/15/2023 16:25:45 Vat Operator Date: 01/15/2023 23:52:00 Dictated By: MELVIN CARRANZA DO
[2023-01-16 01:00] VITALS: BP 106/59
[2023-01-16] MEDS: PIPERACILLIN SODIUM/TAZOBACTAM 4.5 GM in NS (IVPB) 100 ML IV SCH ×3 (01:02→17:59)
[2023-01-16] MEDS: NS IV 1000 ML 1,000 ML IV SCH ×2 (01:02→08:59)
[2023-01-16] MEDS: RT-ALBUTEROL SULF 2.5 MG/3 ML PRE-MIX VIAL INH SCH ×3 (03:21→14:50)
[2023-01-16 03:32] VITALS: BP 103/58
[2023-01-16 05:31] LABS: BASOPHILS % (AUTO) 0 % (0-10); EOSINOPHILS # (AUTO) 0.1 10^3/uL (0.0-0.3); EOSINOPHILS % (AUTO) 1 % (0-10); HEMATOCRIT 33 % (40-54); HEMOGLOBIN 10.5 g/dL (13.3-17.7); LYMPHOCYTES # (AUTO) 0.8 10^3/uL (1.0-4.0); LYMPHOCYTES % (AUTO) 8 % (12-44); MEAN CORPUSCULAR HEMOGLOBIN 30 pg (25-34); MEAN CORPUSCULAR HGB CONC 32 g/dL (32-36); MEAN CORPUSCULAR VOLUME 93 fL (80-99); MEAN PLATELET VOLUME 9.4 fL (9.0-12.2); MONOCYTES # (AUTO) 0.6 10^3/uL (0.0-1.0); MONOCYTES % (AUTO) 6 % (0-12); NEUTROPHILS # (AUTO) 8.7 10^3/uL (1.8-7.8); NEUTROPHILS % (AUTO) 84 % (42-75); PLATELET COUNT 220 10^3/uL (130-400); WHITE BLOOD COUNT 10.3 10^3/uL (4.3-11.0)
[2023-01-16] MEDS: CLINDAMYCIN 600 MG/50 ML IVPB 50 ML IV SCH ×2 (05:33→13:04)
[2023-01-16 05:50] LABS: ALBUMIN 3.3 GM/DL (3.2-4.5); BILIRUBIN,TOTAL 0.6 MG/DL (0.1-1.0); CALCIUM 8.1 MG/DL (8.5-10.1); CREATININE SERUM 1.18 MG/DL (0.60-1.30); POTASSIUM 3.7 MMOL/L (3.6-5.0); TOTAL PROTEIN 6.1 GM/DL (6.4-8.2)
[2023-01-16 08:13] VITALS: BP 97/56
--- NOTE | 2023-01-16 08:13 | Progress Note - Surgery ---
DESTINEE OSPINA 01/16/23 0813: Subjective Date Seen by a Provider: Jan 16, 2023 Time Seen by a Provider: 08:01 Subjective/Events-last exam Patient is seen this morning sitting up in bed and watching tv. He is in good spirits and says that he still has some soreness from his procedure the day prio r. He says that he still has some LLQ pain still but it is more of an achy dull pain today rather than a tenderness the day prior. He states that he has not had a bowel movement since Sunday and that he takes Miralax at home, but sometimes will go a couple days without having a bowel movement. He states that he is still getting up and ambulating to the bathroom to urinate without issue. His hemoglobin is 10.6 this morning and will continue to be monitored during his inpatient stay. Review of Systems General: No Chills, No Night Sweats HEENT: No Head Aches, No Visual Changes, No Ear Pain Pulmonary: No Dyspnea, No Cough Cardiovascular: No: Chest Pain, Palpitations, Orthopnea, Edema Gastrointestinal: Abdominal Pain (LLQ), Constipation (since sunday); No: Nausea, Vomiting, Diarrhea Genitourinary: No Dysuria, No Frequency, No Incontinence, No Hematuria Musculoskeletal: No: neck pain, leg pain Neurological: No: Weakness, Numbness, Confusion Focused Exam Lactate Level 01/15/23 09:50: Lactic Acid Level 0.64 Respiratory: Chest Non Tender, Lungs Clear, No Accessory Muscle Use, No Respiratory Distress; No Crackles, No Rales Cardiovascular: Regular Rate, Rhythm, No Edema, No Gallop, No Murmur Peripheral Pulses: 3+ Carotid (R), 3+ Carotid (L); 2+ Radial Pulses (R), 2+ Radial Pulses (L) Skin: No rash, No ulcerations Objective Exam Vital Signs Date Time Temp Pulse Resp B/P (MAP) Pulse Ox O2 Delivery O2 Flow Rate FiO2 01/16/23 07:16 87 01/16/23 03:32 37.4 100 18 103/58 (73) 95 Nasal Cannula 2.00 01/16/23 03:21 93 Nasal Cannula 2.00 01/16/23 01:00 37.8 100 18 106/59 (75) 93 Nasal Cannula 2.00 01/16/23 01:00 106 01/15/23 23:39 37.8 103 18 95/53 (67) 95 Nasal Cannula 2.00 01/15/23 21:20 94 Nasal Cannula 2.00 01/15/23 21:10 94 Nasal Cannula 2.00 01/15/23 19:38 36.6 82 18 121/68 (85) 95 Nasal Cannula 2.00 2.00 01/15/23 19:03 144 01/15/23 19:00 124 01/15/23 16:41 36.6 86 18 108/66 (80) 94 Nasal Cannula 2.00 01/15/23 16:35 Nasal Cannula 2.00 01/15/23 16:35 36.7 18 114/82 (93) 96 Nasal Cannula 2.00 01/15/23 16:30 18 113/76 (88) 97 Nasal Cannula 2.00 01/15/23 16:24 Nasal Cannula 2.00 01/15/23 16:20 18 111/77 (88) 93 Room Air 01/15/23 16:19 Room Air 01/15/23 16:10 18 104/68 (80) 98 Face Tent 10.00 01/15/23 16:10 Face Tent 10.00 01/15/23 16:01 Face Tent 10.00 01/15/23 16:00 18 113/80 (91) 99 Face Tent 10.00 01/15/23 15:52 Face Tent 10.00 01/15/23 15:50 18 105/71 (82) 99 Face Tent 10.00 01/15/23 15:44 36.4 16 101/63 (76) 93 Face Tent 10.00 01/15/23 15:44 Face Tent 10.00 01/15/23 14:26 Room Air 01/15/23 12:30 91 01/15/23 11:49 36.6 91 18 112/75 (87) 94 Room Air 01/15/23 10:29 35.5 101 96 01/15/23 10:13 101 01/15/23 09:58 35.5 102 18 122/76 (91) 96 Room Air 01/15/23 09:30 35.5 102 18 122/76 (91) 96 Room Air I & O 01/16/23 07:00 Intake Total 1900 ml Output Total 1650 ml Balance 250 ml Capillary Refill : General Appearance: No Apparent Distress, WD/WN, Chronically ill HEENT: PERRL/EOMI, Normal ENT Inspection, Pharynx Normal Neck: Full Range of Motion, Normal Inspection, Non Tender, Supple, Carotid Bruit Respiratory: Chest Non Tender, Lungs Clear, Normal Breath Sounds, No Accessory Muscle Use, No Respiratory Distress Cardiovascular: Regular Rate, Rhythm, No Edema, No Gallop, No JVD, No Murmur, Normal Peripheral Pulses, Tachycardia Peripheral Pulses: 3+ Carotid (R), 3+ Carotid (L); 2+ Radial Pulses (R), 2+ Radial Pulses (L) Gastrointestinal: normal bowel sounds, soft, guarding (conscious to LLQ), tenderness (LLQ) Extremity: Normal Capillary Refill, Normal Inspection, Normal Range of Motion, Non Tender, No Calf Tenderness, No Pedal Edema Neurologic/Psychiatric: Alert, Oriented x3, No Motor/Sensory Deficits, Normal Mood/Affect Skin: Normal Color, Warm/Dry, Other (Abscess and erythema of the buttocks) Lymphatic: No Adenopathy Results Lab Laboratory Tests 01/15/23 09:50: White Blood Count 11.5H, Red Blood Count 4.39, Hemoglobin 13.2L, Hematocrit 40, Mean Corpuscular Volume 91, Mean Corpuscular Hemoglobin 30, Mean Corpuscular Hemoglobin Concent 33, Red Cell Distribution Width 14.5, Platelet Count 270, Mean Platelet Volume 9.1, Immature Granulocyte % (Auto) 1, Neutrophils (%) (Auto) 82H, Lymphocytes (%) (Auto) 9L, Monocytes (%) (Auto) 7, Eosinophils (%) (Auto) 1, Basophils (%) (Auto) 1, Neutrophils # (Auto) 9.4H, Lymphocytes # (Auto) 1.1, Monocytes # (Auto) 0.8, Eosinophils # (Auto) 0.1, Basophils # (Auto) 0.1, Immature Granulocyte # (Auto) 0.1, Prothrombin Time 14.4, INR Comment 1.1, Activated Partial Thromboplast Time 32, Sodium Level 137, Potassium Level 4.0, Chloride Level 102, Carbon Dioxide Level 24, Anion Gap 11, Blood Urea Nitrogen 13, Creatinine 1.17, Estimat Glomerular Filtration Rate 81, BUN/Creatinine Ratio 11, Glucose Level 92, Lactic Acid Level 0.64, Calcium Level 9.4, Corrected Calcium 9.1, Total Bilirubin 0.6, Aspartate Amino Transf (AST/SGOT) 14, Alanine Aminotransferase (ALT/SGPT) 12, Alkaline Phosphatase 87, Total Protein 8.1, Albumin 4.4 01/15/23 10:30: Blood Gas Puncture Site LEFT RAD, Blood Gas Patient Temperature 35.5, Arterial Blood pH 7.46H, Arterial Blood Partial Pressure CO2 30L, Arterial Blood Partial Pressure O2 67L, Arterial Blood HCO3 21L, Arterial Blood Total CO2 22.1, Arterial Blood Oxygen Saturation 94, Arterial Blood Base Excess -2.5, Brendon Test YES-POS, Blood Gas Ventilator Setting NO, Blood Gas Inspired Oxygen ROOM AIR 01/15/23 11:25: Urine Color YELLOW, Urine Clarity CLEAR, Urine pH 7.0, Urine Specific [place] 1.010L, Urine Protein TRACEH, Urine Glucose (UA) NEGATIVE, Urine Ketones NEGATIVE, Urine Nitrite NEGATIVE, Urine Bilirubin NEGATIVE, Urine Urobilinogen 1.0, Urine Leukocyte Esterase NEGATIVE, Urine RBC (Auto) NEGATIVE, Urine RBC NONE, Urine WBC NONE, Urine Squamous Epithelial Cells RARE, Urine Crystals NONE, Urine Bacteria NEGATIVE, Urine Casts NONE, Urine Mucus NEGATIVE, Urine Culture Indicated CULTURE PENDING 01/16/23 05:10: White Blood Count 10.3, Red Blood Count 3.50L, Hemoglobin 10.5#L, Hematocrit 33L , Mean Corpuscular Volume 93, Mean Corpuscular Hemoglobin 30, Mean Corpuscular Hemoglobin Concent 32, Red Cell Distribution Width 14.7H, Platelet Count 220, Mean Platelet Volume 9.4, Immature Granulocyte % (Auto) 1, Neutrophils (%) (Auto) 84H, Lymphocytes (%) (Auto) 8L, Monocytes (%) (Auto) 6, Eosinophils (%) (Auto) 1, Basophils (%) (Auto) 0, Neutrophils # (Auto) 8.7H, Lymphocytes # (Auto) 0.8L, Monocytes # (Auto) 0.6, Eosinophils # (Auto) 0.1, Basophils # (Auto) 0.0, Immature Granulocyte # (Auto) 0.1, Sodium Level 134L, Potassium [place] 3.7, Chloride Level 106, Carbon Dioxide Level 20L, Anion Gap 8, Blood Urea Nitrogen 12, Creatinine 1.18, Estimat Glomerular Filtration Rate 80, BUN/Creatinine Ratio 10, Glucose Level 99, Calcium Level 8.1L, Corrected Calcium 8.7, Total Bilirubin 0.6, Aspartate Amino Transf (AST/SGOT) 14, Alanine Aminotransferase (ALT/SGPT) 11, Alkaline Phosphatase 73, Total Protein 6.1L, Albumin 3.3 Assessment/Plan Assessment/Plan Assessment/Plan Post operative removal of Abscess of Left gluteal cheek Anal Cancer COPD HIV Patient had and I&D in the OR of left gluteal cheek the day prior. Plan is to continue antibiotics, IV fluids, pain control. Will continue to monitor his Hgb levels throughout the day as he is currently sitting at 10.6. Patient is overall doing well and does not have any complaints other than soreness to buttox region. He will continue to be monitored. BAKARI CARRANZA DO 01/16/23 1039: Subjective Time Seen by a Provider: 10:16 Subjective/Events-last exam Pt seen and examined, states he feels much better than yesterday. Pain is controlled. Review of Systems General: No Chills, No Night Sweats Pulmonary: No Dyspnea, No Cough Cardiovascular: No: Chest Pain, Palpitations Gastrointestinal: Constipation (since sunday); No: Nausea, Vomiting Objective Exam General Appearance: No Apparent Distress, WD/WN HEENT: PERRL/EOMI Respiratory: Lungs Clear, Normal Breath Sounds, No Accessory Muscle Use, No Respiratory Distress Cardiovascular: Regular Rate, Rhythm, No Murmur Neurologic/Psychiatric: Alert, Oriented x3 Skin: Other (abscess site packed) Assessment/Plan Assessment/Plan Assessment/Plan S/P I&D of Abscess of Left gluteal cheek Anal Cancer COPD HIV Patient had and I&D in the OR of left gluteal cheek and the previous right side reopened. Plan is to continue antibiotics and switch to oral; can go home if ok with Hospitalist. Primary care physician can take over packing and wound care; has been doing that for patient. Supervisory-Addendum Brief Verification & Attestation Participated in pt care: history, MDM, physical Personally performed: exam, history, MDM, supervision of care Care discussed with: Medical Student Procedures: n/a Verification and Attestation of Medical Student E/M Service A PA student performed and documented this service. I then reviewed and verified all information documented by the medical student and made modifications to such information, when appropriate. I personally performed a physical exam, medical decision making and then discussed any differences between the notes and made revisions as necessary to create one note. Bakari Carranza , 01/16/23 , 10:37 DESTINEE OSPINA Jan 16, 2023 08:13 BAKARI CARRANZA DO Jan 16, 2023 10:39
[2023-01-16] MEDS ORDERED: NON-FORMULARY MEDICATION 1 EA EA (Bictegrav/Emtricit/Tenofov Ala (Biktarvy 50-200-25 mg Ta PO SCH (09:00)
[2023-01-16] MEDS ORDERED: TROUGH ORDER-PHARMACY XX ONE ×2 (09:00→21:00)
[2023-01-16] MEDS ORDERED: PANTOPRAZOLE 40 MG (PROTONIX) VIAL IV SCH (09:00)
[2023-01-16] MEDS: VANCOMYCIN 1500MG/300ML PREMIX IV SCH (09:01)
[2023-01-16] MEDS: ENOXAPARIN 40 MG/0.4 ML (LOVENOX) SYR SC SCH (09:02)
[2023-01-16] MEDS: LACTOBACILLUS ACIDOPHILUS (PROBIOTIC) CAPSULE PO SCH ×2 (09:03→13:04)
[2023-01-16] MEDS: DOCUSATE SODIUM 100 MG (COLACE) CAP PO SCH (09:04)
[2023-01-16] MEDS: SENNOSIDES 8.6 MG (SENOKOT) TAB PO SCH (09:04)
--- NOTE | 2023-01-16 10:18 | Progress Note ---
Subjective Date Seen by a Provider: Jan 16, 2023 Time Seen by a Provider: 10:15 Focused Exam Lactate Level 01/15/23 09:50: Lactic Acid Level 0.64 Objective Exam Last Set of Vital Signs Vital Signs Date Time Temp Pulse Resp B/P (MAP) Pulse Ox O2 Delivery O2 Flow Rate FiO2 01/16/23 08:53 95 Nasal Cannula 2.00 01/16/23 08:13 36.4 88 18 97/56 (70) Capillary Refill : I&O Intake and Output 01/16/23 00:00 Intake Total 550 ml Output Total 800 ml Balance -250 ml Intake Oral 200 ml IV Total 350 ml Output Urine Total 800 ml # Voids 1 Daily Weight Change No Results Lab Laboratory Tests 01/15/23 10:30: Blood Gas Puncture Site LEFT RAD, Blood Gas Patient Temperature 35.5, Arterial Blood pH 7.46H, Arterial Blood Partial Pressure CO2 30L, Arterial Blood Partial Pressure O2 67L, Arterial Blood HCO3 21L, Arterial Blood Total CO2 22.1, Arterial Blood Oxygen Saturation 94, Arterial Blood Base Excess -2.5, Brendon Test YES-POS, Blood Gas Ventilator Setting NO, Blood Gas Inspired Oxygen ROOM AIR 01/15/23 11:25: Urine Color YELLOW, Urine Clarity CLEAR, Urine pH 7.0, Urine Specific [place] 1.010L, Urine Protein TRACEH, Urine Glucose (UA) NEGATIVE, Urine Ketones NEGATIVE, Urine Nitrite NEGATIVE, Urine Bilirubin NEGATIVE, Urine Urobilinogen 1.0, Urine Leukocyte Esterase NEGATIVE, Urine RBC (Auto) NEGATIVE, Urine RBC NONE, Urine WBC NONE, Urine Squamous Epithelial Cells RARE, Urine Crystals NONE, Urine Bacteria NEGATIVE, Urine Casts NONE, Urine Mucus NEGATIVE, Urine Culture Indicated CULTURE PENDING 01/16/23 05:10: White Blood Count 10.3, Red Blood Count 3.50L, Hemoglobin 10.5#L, Hematocrit 33L , Mean Corpuscular Volume 93, Mean Corpuscular Hemoglobin 30, Mean Corpuscular H emoglobin Concent 32, Red Cell Distribution Width 14.7H, Platelet Count 220, Mean Platelet Volume 9.4, Immature Granulocyte % (Auto) 1, Neutrophils (%) (Auto) 84H, Lymphocytes (%) (Auto) 8L, Monocytes (%) (Auto) 6, Eosinophils (%) (Auto) 1, Basophils (%) (Auto) 0, Neutrophils # (Auto) 8.7H, Lymphocytes # (Auto) 0.8L, Monocytes # (Auto) 0.6, Eosinophils # (Auto) 0.1, Basophils # (Auto) 0.0, Immature Granulocyte # (Auto) 0.1, Sodium Level 134L, Potassium Level 3.7, Chloride Level 106, Carbon Dioxide Level 20L, Anion Gap 8, Blood Urea Nitrogen 12, Creatinine 1.18, Estimat Glomerular Filtration Rate 80, BUN/Creatinine Ratio 10, Glucose Level 99, Calcium Level 8.1L, Corrected Calcium 8.7, Total Bilirubin 0.6, Aspartate Amino Transf (AST/SGOT) 14, Alanine Aminotransferase (ALT/SGPT) 11, Alkaline Phosphatase 73, Total Protein 6.1L, Albumin 3.3 01/16/23 09:28: Vancomycin Level Trough 33.0*H Diagnosis/Problems Diagnosis/Problems (1) Perianal abscess (2) Anal warts (3) HIV disease Status: Acute (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
[2023-01-16] MEDS ORDERED: OXC5T PO ×2 (10:22)
[2023-01-16] MEDS ORDERED: CLIN-144 PO ×2 (10:22)
--- NOTE | 2023-01-16 10:24 | Discharge Summary ---
Diagnosis/Chief Complaint Date of Admission Jan 15, 2023 at 09:25 Date of Discharge Discharge Date: Jan 16, 2023 Discharge Diagnosis Assessment: Perirectal abscess failed oral antibiotics status post incision and drainage by Dr. Carranza Sepsis HIV Recent anal wart surgical removal Discharge Summary Discharge Physical Examination Allergies: Coded Allergies: No Known Drug Allergies (Unverified , 12/21/22) Vitals & I&Os Vital Signs Date Time Temp Pulse Resp B/P (MAP) Pulse Ox O2 Delivery O2 Flow Rate FiO2 01/16/23 17:36 35.8 89 18 108/60 94 Nasal Cannula 2.00 General Appearance: Alert, Oriented X3, Cooperative Respiratory: Clear to Auscultation Cardiovascular: Regular Rate Psych/Mental Status: Mental Status NL Hospital Course Was the Problem List Reviewed?: Yes Patient had an uneventful hospital course after he was admitted for sepsis and perirectal abscess which was managed by Dr. Carranza and required an incision and drainage with good results. broad-spectrum antibiotics initiated which narrowed down to clindamycin to finish that at 300 mg 3 times daily and will be monitored closely by primary care provider. Labs (last 24 hrs) Laboratory Tests 01/15/23 09:50: White Blood Count 11.5H, Red Blood Count 4.39, Hemoglobin 13.2L, Hematocrit 40, Mean Corpuscular Volume 91, Mean Corpuscular Hemoglobin 30, Mean Corpuscular Hemoglobin Concent 33, Red Cell Distribution Width 14.5, Platelet Count 270, Mean Platelet Volume 9.1, Immature Granulocyte % (Auto) 1, Neutrophils (%) (Auto) 82H, Lymphocytes (%) (Auto) 9L, Monocytes (%) (Auto) 7, Eosinophils (%) (Auto) 1, Basophils (%) (Auto) 1, Neutrophils # (Auto) 9.4H, Lymphocytes # (Auto) 1.1, Monocytes # (Auto) 0.8, Eosinophils # (Auto) 0.1, Basophils # (Auto) 0.1, Immature Granulocyte # (Auto) 0.1, Prothrombin Time 14.4, INR Comment 1.1, Activated Partial Thromboplast Time 32, Sodium Level 137, Potassium Level 4.0, Chloride Level 102, Carbon Dioxide Level 24, Anion Gap 11, Blood Urea Nitrogen 13, Creatinine 1.17, Estimat Glomerular Filtration Rate 81, BUN/Creatinine Ratio 11, Glucose Level 92, Lactic Acid Level 0.64, Calcium Level 9.4, Corrected Calcium 9.1, Total Bilirubin 0.6, Aspartate Amino Transf (AST/SGOT) 14, Alanine Aminotransferase (ALT/SGPT) 12, Alkaline Phosphatase 87, Total Protein 8.1, Albumin 4.4 01/15/23 10:30: Blood Gas Puncture Site LEFT RAD, Blood Gas Patient Temperature 35.5, Arterial Blood pH 7.46H, Arterial Blood Partial Pressure CO2 30L, Arterial Blood Partial Pressure O2 67L, Arterial Blood HCO3 21L, Arterial Blood Total CO2 22.1, Arterial Blood Oxygen Saturation 94, Arterial Blood Base Excess -2.5, Brendon Test YES-POS, Blood Gas Ventilator Setting NO, Blood Gas Inspired Oxygen ROOM AIR 01/15/23 11:25: Urine Color YELLOW, Urine Clarity CLEAR, Urine pH 7.0, Urine Specific [place] 1.010L, Urine Protein TRACEH, Urine Glucose (UA) NEGATIVE, Urine Ketones NEGATIVE, Urine Nitrite NEGATIVE, Urine Bilirubin NEGATIVE, Urine Urobilinogen 1.0, Urine Leukocyte Esterase NEGATIVE, Urine RBC (Auto) NEGATIVE, Urine RBC NONE, Urine WBC NONE, Urine Squamous Epithelial Cells RARE, Urine Crystals NONE, Urine Bacteria NEGATIVE, Urine Casts NONE, Urine Mucus NEGATIVE, Urine Culture Indicated CULTURE PENDING 01/16/23 05:10: White Blood Count 10.3, Red Blood Count 3.50L, Hemoglobin 10.5#L, Hematocrit 33L , Mean Corpuscular Volume 93, Mean Corpuscular Hemoglobin 30, Mean Corpuscular Hemoglobin Concent 32, Red Cell Distribution Width 14.7H, Platelet Count 220, Mean Platelet Volume 9.4, Immature Granulocyte % (Auto) 1, Neutrophils (%) (Auto) 84H, Lymphocytes (%) (Auto) 8L, Monocytes (%) (Auto) 6, Eosinophils (%) (Auto) 1, Basophils (%) (Auto) 0, Neutrophils # (Auto) 8.7H, Lymphocytes # (Auto) 0.8L, Monocytes # (Auto) 0.6, Eosinophils # (Auto) 0.1, Basophils # (Auto) 0.0, Immature Granulocyte # (Auto) 0.1, Sodium Level 134L, Potassium Level 3.7, Chloride Level 106, Carbon Dioxide Level 20L, Anion Gap 8, Blood Urea Nitrogen 12, Creatinine 1.18, Estimat Glomerular Filtration Rate 80, BUN/Creatinine Ratio 10, Glucose Level 99, Calcium Level 8.1L, Corrected Calcium 8.7, Total Bilirubin 0.6, Aspartate Amino Transf (AST/SGOT) 14, Alanine Aminotransferase (ALT/SGPT) 11, Alkaline Phosphatase 73, Total Protein 6.1L, Albumin 3.3 01/16/23 09:28: Vancomycin Level Trough 33.0*H 01/16/23 11:59: Glucometer 113H Microbiology 01/15/23 Urine Culture - Preliminary, Resulted Culture In Progress 01/15/23 Blood Culture - Preliminary, Resulted No growth Pending Labs Microbiology Date/Time Source Procedure Growth Status 01/15/23 11:25 Urine Not Otherwise Specified Urine Culture - Preliminary Culture In Progress Resulted 01/15/23 09:55 Peripheral Lt Hand Blood Culture - Preliminary No growth Resulted 01/15/23 09:50 Peripheral Rt Ac Blood Culture - Preliminary No growth Resulted Laboratory Tests 01/15/23 09:50: White Blood Count 11.5, Red Blood Count 4.39, Hemoglobin 13.2, Hematocrit 40, Mean Corpuscular Volume 91, Mean Corpuscular Hemoglobin 30, Mean Corpuscular Hemoglobin Concent 33, Red Cell Distribution Width 14.5, Platelet Count 270, Mean Platelet Volume 9.1, Immature Granulocyte % (Auto) 1, Neutrophils (%) (Auto) 82, Lymphocytes (%) (Auto) 9, Monocytes (%) (Auto) 7, Eosinophils (%) (Auto) 1, Basophils (%) (Auto) 1, Neutrophils # (Auto) 9.4, Lymphocytes # (Auto) 1.1, Monocytes # (Auto) 0.8, Eosinophils # (Auto) 0.1, Basophils # (Auto) 0.1, Immature Granulocyte # (Auto) 0.1, Prothrombin Time 14.4, INR Comment 1.1, Activated Partial Thromboplast Time 32, Sodium Level 137, Potassium Level 4.0, Chloride Level 102, Carbon Dioxide Level 24, Anion Gap 11, Blood Urea Nitrogen 13, Creatinine 1.17, Estimat Glomerular Filtration Rate 81, BUN/Creatinine Ratio 11, Glucose Level 92, Lactic Acid Level 0.64, Calcium Level 9.4, Corrected Calcium 9.1, Total Bilirubin 0.6, Aspartate Amino Transf (AST/SGOT) 14, Alanine Aminotransferase (ALT/SGPT) 12, Alkaline Phosphatase 87, Total Protein 8.1, Albumin 4.4 01/15/23 10:30: Blood Gas Puncture Site LEFT RAD, Blood Gas Patient Temperature 35.5, Arterial Blood pH 7.46, Arterial Blood Partial Pressure CO2 30, Arterial Blood Partial Pressure O2 67, Arterial Blood HCO3 21, Arterial Blood Total CO2 22.1, Arterial Blood Oxygen Saturation 94, Arterial Blood Base Excess -2.5, Brendon Test YES-POS, Blood Gas Ventilator Setting NO, Blood Gas Inspired Oxygen ROOM AIR 01/15/23 11:25: Urine Color YELLOW, Urine Clarity CLEAR, Urine pH 7.0, Urine Specific [place] 1.010, Urine Protein TRACE, Urine Glucose (UA) NEGATIVE, Urine Ketones NEGATIVE, Urine Nitrite NEGATIVE, Urine Bilirubin NEGATIVE, Urine Urobilinogen 1.0, Urine Leukocyte Esterase NEGATIVE, Urine RBC (Auto) NEGATIVE, Urine RBC NONE, Urine WBC NONE, Urine Squamous Epithelial Cells RARE, Urine Crystals NONE, Urine Bacteria NEGATIVE, Urine Casts NONE, Urine Mucus NEGATIVE, Urine Culture Indicated CULTURE PENDING 01/16/23 05:10: White Blood Count 10.3, Red Blood Count 3.50, Hemoglobin 10.5, Hematocrit 33, Mean Corpuscular Volume 93, Mean Corpuscular Hemoglobin 30, Mean Corpuscular Hemoglobin Concent 32, Red Cell Distribution Width 14.7, Platelet Count 220, Mean Platelet Volume 9.4, Immature Granulocyte % (Auto) 1, Neutrophils (%) ( Auto) 84, Lymphocytes (%) (Auto) 8, Monocytes (%) (Auto) 6, Eosinophils (%) (Auto) 1, Basophils (%) (Auto) 0, Neutrophils # (Auto) 8.7, Lymphocytes # (Auto) 0.8, Monocytes # (Auto) 0.6, Eosinophils # (Auto) 0.1, Basophils # (Auto) 0.0, Immature Granulocyte # (Auto) 0.1, Sodium Level 134, Potassium Level 3.7, Chloride Level 106, Carbon Dioxide Level 20, Anion Gap 8, Blood Urea Nitrogen 12, Creatinine 1.18, Estimat Glomerular Filtration Rate 80, BUN/Creatinine Ratio 10, Glucose Level 99, Calcium Level 8.1, Corrected Calcium 8.7, Total Bilirubin 0.6, Aspartate Amino Transf (AST/SGOT) 14, Alanine Aminotransferase (ALT/SGPT) 11, Alkaline Phosphatase 73, Total Protein 6.1, Albumin 3.3 01/16/23 09:28: Vancomycin Level Trough 33.0 01/16/23 11:59: Glucometer 113 Discharge Home Medications: Active Scripts Active Oxyir Tablet (Oxycodone HCl) 5 Mg Tab 5 Mg PO Q4HR PRN Clindamycin HCl 300 Mg Capsule 300 Mg PO TID Reported Ibuprofen 200 Mg Tablet 1,200 Mg PO Q8H TAKES 6 (200MG) TABS Tylenol Extra Strength (Acetaminophen) 500 Mg Tablet 3,000 Mg PO Q8H PRN TAKES 6 (500MG) TABS Trazodone HCl 50 Mg Tablet 50-100 Mg PO HS TAKES 1 TO 2 TABS Biktarvy 50-200-25 mg Tablet (Bictegrav/Emtricit/Tenofov Ala) 1 Each Tablet 1 Each PO DAILY Instructions to patient/family Please see electronic discharge instructions given to patient. 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
[2023-01-16 12:02] VITALS: BP 108/60
--- NOTE | 2023-01-16 14:04 | Anesthesia-General Post-Op ---
General Patient Condition Mental Status/LOC: Same as Preop Cardiovascular: Satisfactory Nausea/Vomiting: Absent Respiratory: Satisfactory Pain: Controlled Complications: Absent Post Op Complications Complications None Follow Up Care/Instructions Patient Instructions None needed. Anesthesia/Patient Condition Patient Condition Patient is doing well, no complaints, stable vital signs, no apparent adverse anesthesia problems. No complications reported per nursing. ONEL STOLL CRNA Jan 16, 2023 14:04
[2023-01-16 17:36] VITALS: BP 108/60
[2023-01-16] MEDS ORDERED: traZODone 50 MG (DESYREL) TAB PO SCH (21:00)
--- NOTE | 2023-01-17 10:43 | Physician Query Clarification ---
PQ-Link Infection to Dev/Proc Admission/Discharge Admission Date: Jan 15, 2023 at 09:25 Discharge Date: Jan 16, 2023 at 18:00 Dr. Carranza, The medical record reflects the following clinical scenario: History/Risk Factors: perirectal and lt gluteal abscess, sepsis Clinical Findings: also coming out at the same spot previously on where he had anal warts and squamous cancer identified, there was also some pus coming out there and then from the right inguinal incision, there is also draining some pus, opened the right side bluntly, again palpated, went up a little bit tunneling towards superiorly and coming across, but did not cross the midline. Treatment: I&D, IV Piperacillin, IV Vancomycin Question: Can you specify if the sepsis, rt gluteal abscess and inguinal incision infection is due to/associated with the previous I&D? Please document a response in Progress Note or Discharge Summary. 1. Yes - sepsis, rt gluteal abscess and inguinal incision infection is due to/associated with the previous I&D. 2. No - sepsis, rt gluteal abscess and inguinal incision infection is due to /associated with the previous I&D. 3. Other, with explanation of the clinical findings. 4. Clinically undetermined, no explanation for the clinical findings. PHYSICIAN RESPONSE Specify if infection: 2 In responding to this query, please exercise your independent professional judgment. The purpose of this communication is to more accurately reflect the complexity of your patients condition. The fact that a question is asked does not imply that any particular answer is desired or expected. Thank you for your timely response to this clarification. Requestors name: Edilson THIS PHYSICIAN QUERY FORM IS A PERMANENT PART OF THE MEDICAL RECORD EDILSON RUIZ Jan 17, 2023 10:43 BAKARI CARRANZA DO Jan 24, 2023 13:30
[2023-01-24] MEDS ORDERED: OXC5T PO (09:50)
== END 2023-01-16 18:00 | disposition home or self-care (01) | DRG 854 ==
LOC: 4TH 09:25
PROVIDERS: ADMIT Internal Medicine; ATTEND Internal Medicine
PROC: 0Y950ZZ Drainage of Right Inguinal Region, Open Approach (ICD-10-PCS; 2023-01-15)
PROC: 0J990ZZ Drainage of Buttock Subcutaneous Tissue and Fascia, Open Approach (ICD-10-PCS; principal; 2023-01-15 15:05)
DX: A41.9 Sepsis, unspecified organism (principal); K61.1 Rectal abscess; L02.214 Cutaneous abscess of groin; L02.31 Cutaneous abscess of buttock; Z21 Asymptomatic human immunodeficiency virus [HIV] infection status; Z85.048 Personal history of other malignant neoplasm of rectum, rectosigmoid junction, and anus; F17.210 Nicotine dependence, cigarettes, uncomplicated; M19.90 Unspecified osteoarthritis, unspecified site; J44.9 Chronic obstructive pulmonary disease, unspecified; Z98.1 Arthrodesis status; Z79.899 Other long term (current) drug therapy; Z79.891 Long term (current) use of opiate analgesic
CPT/HCPCS: 36415; 36600; 71045; 72192; 80053; 80202; 81000; 82805; 82947; 83605; 85025; 85610; 85730; 87040; 87070; 87075; 87077; 87088; 87186; 87205; 94640; 94760

== ENCOUNTER 2023-01-19 05:32 | Outpatient (CLI) | payer OTHER ==
[~2023-01-19] VITALS: Ht 193 cm; Wt 117.6 kg
[~2023-01-19 05:32] MED LIST changes: -IOHEXOL 350 MG/ML 100 ML (OMNIPAQUE 350) VIAL IV ONE; -NS 100 ML (IVPB) BAG IV ONE
[2023-01-24] MEDS ORDERED: OXC5T PO (09:50)
== END 2023-01-19 08:36 | disposition home or self-care (01) ==
LOC: PREOP 05:32
PROVIDERS: ATTEND Surgery
DX: Z01.818 Encounter for other preprocedural examination (principal)

== ENCOUNTER → 2023-01-19 | Outpatient (CLI) | payer OTHER ==
[~2023-01-19] MED LIST changes: +ACET-2267 PO; +CLIN-144 PO; +IBUP-2473 PO; +IOHEXOL 350 MG/ML 100 ML (OMNIPAQUE 350) VIAL IV ONE; +NS 100 ML (IVPB) BAG IV ONE; +OXC5T PO; +TRZ50T PO
--- NOTE | 2023-01-19 12:33 | Diagnostic Imaging Report ---
EXAMINATION: CT chest, abdomen and pelvis with intravenous contrast. TECHNIQUE: Multiple contiguous axial images were obtained through the chest, abdomen and pelvis after the uneventful administration of intravenous contrast. All CT scans use one or more of the following dose optimizing techniques: automated exposure control, MA and/or KvP adjustment based on patient size and exam type or iterative reconstruction. 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 COMPARISON: 01/15/2023 FINDINGS: There is no edema or pneumonia. No pleural effusion. No pneumothorax. There is a 4 mm left apical nodule (series 3, image 32). There is an indeterminate 4 mm left lower lobe nodule (series 3, image 114). There are a few scattered areas of air trapping. There is no axillary or supraclavicular lymphadenopathy. There is no mediastinal lymphadenopathy. Heart size is normal. There are no coronary artery calcifications. No pericardial effusion. Aorta is normal in caliber. The liver is normal without focal lesion. There is no biliary ductal dilation. There are stones in the gallbladder. No wall thickening or pericholecystic fluid. Pancreas is normal. Spleen is normal. Adrenal glands are normal. The kidneys are normal. There is no hydronephrosis. Urinary bladder is normal. Bowel is normal in caliber without obstruction or inflammation. No free fluid or air. There are enlarged bilateral inguinal lymph nodes measuring 1.4 cm on the right and 1.4 cm on the left. Perianal soft tissue thickening is partially visualized in keeping with history of squamous cell carcinoma. Aorta is normal in caliber without aneurysm. There are no suspicious osseus lesions. IMPRESSION: 1. Bilateral inguinal lymphadenopathy concerning for metastatic disease. 2. There are two indeterminate but probably benign pulmonary nodules each measuring 4 mm. Dictated by: Dictated on workstation # [id number]
== END ==
LOC: RAD 10:48
PROVIDERS: ATTEND Internal Medicine Hematology & Oncology
DX: R59.1 Generalized enlarged lymph nodes (principal); C44.520 Squamous cell carcinoma of anal skin
CPT/HCPCS: 71260; 74177

== ENCOUNTER 2023-01-24 07:30 | Day surgery (SDC) | payer OTHER ==
[~2023-01-24] VITALS: Ht 193 cm; Wt 117.6 kg
[2023-01-24] VITALS (7 sets, daily range): BP systolic 93–121; BP diastolic 62–84
[2023-01-24] MEDS ORDERED: NS (IVPB) 50 ML ONE (07:59)
[2023-01-24] MEDS ORDERED: ceFAZolin INJECTION 2,000 MG ONE (07:59)
[2023-01-24] MEDS ORDERED: LACTATED RINGERS 1,000 ML IV PRN (08:00)
[2023-01-24] MEDS ORDERED: ceFAZolin INJECTION 2,000 MG in NS (IVPB) 50 ML IV ONE (08:00)
[2023-01-24] MEDS ORDERED: BUP/EPI 0.25% 1:200,000 (MARCAINE) 30 ML VIAL ONE (08:35)
[2023-01-24] MEDS ORDERED: HEParin (CENTRAL IV FLUSH) 500 UNIT/5 ML SYR ONE (08:35)
[2023-01-24] MEDS ORDERED: 0.9% SODIUM CHLORIDE PF INJ 20 ML VIAL ONE (08:35)
[2023-01-24] MEDS ORDERED: PROPOFOL INJECTION 50 ML IV ONE (08:39)
[2023-01-24] MEDS ORDERED: LIDOCAINE PF 2% 5 ML (XYLOCAINE) VIAL ONE (08:39)
[2023-01-24] MEDS ORDERED: MIDAZOLAM 2 MG/2 ML (VERSED) VIAL ONE (08:39)
[2023-01-24] MEDS ORDERED: KETAMINE 50 MG/5 ML SYRINGE ONE (09:15)
[2023-01-24] MEDS ORDERED: HEParin (CENTRAL IV FLUSH) 500 UNIT/5 ML SYR IV ONE (09:24)
[2023-01-24] MEDS ORDERED: 0.9% SODIUM CHLORIDE PF INJ 20 ML VIAL IV ONE (09:25)
[2023-01-24] MEDS ORDERED: BUP/EPI 0.25% 1:200,000 (MARCAINE) 30 ML VIAL INJ ONE (09:25)
--- NOTE | 2023-01-24 09:48 | Progress Note-Post Operative ---
Post-Operative Progess Note Surgeon (s)/Sole Assessor (s) Surgeon BAKARI JUAREZ DO Sole Assessor: MODESTA [employer] student Pre-Operative Diagnosis SQUAMOUS CELL CANCER Post-Operative Diagnosis same plus venous insufficiency Procedure & Operative Findings Date of Procedure 01/24/23 Procedure Performed/Findings Brett-Cath Placement PROCEDURE: The patient was taken to the operating suite, was prepped and draped in the sterile fashion. A surgical pause was performed. Local anesthetic was infiltrated at the clavicle and along the tract to the right anterior chest, where more local was placed so the pocket could be created. Using an 18 gauge finder needle with negative inspiration the right subclavian vein was accessed on the first attempt and dark nonpulsatile blood was withdrawn. The wire was inserted and fluoroscopy assured proper placement. The needle was removed. The regular wire was inserted and fluoroscopy assured proper placement. The wire was then secured. A #11 blade scalpel was used to make an incision over the right chest and along guidewire. Cautery was used to dissect down to the pectoral fascia. A pocket was created with blunt dissection. The dilator sheath was then advanced over the wire under fluoroscopy and the dilator and wire were removed. The Groshong catheter was inserted through the sheath and the sheath was then removed. The Groshong wire was removed. The catheter was then tunneled to the right chest pocket. Fluoroscopy was used to cut to length and this was then attached to the port which was then placed within the pocket. The port was then accessed without difficulty. It was then flushed with saline and then heparin. The subcutaneous tissues were then reapproximated using 3-0 Vicryl. Finally the skin was closed with 4-0 undyed monocryl, 3 interrupted sutures. The areas were then washed and dried. Skin Affix was placed over incision. The insertion point of the neck Skin Affix was placed over the incision. The patient tolerated the procedure well without complication and was taken to recovery room in stable condition. Anesthesia Type IV sedation by LINE CONTROLLER Estimated Blood Loss Estimated blood loss (mL): scant Specimens/Packing Specimens Removed none BAKARI JUAREZ DO Jan 24, 2023 09:48
--- NOTE | 2023-01-24 09:49 | Discharge Inst-Surgical ---
Discharge Inst-Surgical Depart Medication/Instructions New, Converted or Re-Newed RX: Transmitted to Pharmacy Patient Instructions Follow up Appt: Make appointment for 1 week. [phone] Instructions: No lifting greater than 20 pounds. No strenuous activity. May shower in 24 hours, no tub bath or soaking. Use incentive spirometer at home as directed. No Smoking Skin/Wound Care: May remove bandages in am. You need to leave the Dermabond on incision it will fall off on it's own. Symptoms to Report: Appetite Changes, Extremity Discoloration, Numbness/Tingling, Swelling Increased, Bleeding Excessive, Eyesight Changes, Pain Increased, Urine Color Change, Constipation(Persistent), Fever over 101 degree F, Pain/Pressure in chest, Urinating Difficulty, Cough Up/Vomit Blood, Heart Beat Irreg/Pounding, Pain/Pressure in jaw, Cramps in feet or legs, Lightheadedness, Pain/Pressure in shoulder, Diarrhea(Persistent), Memory Changes Suddenly, Questions/Concerns, Weight gain consecutive days, Dizziness/Fainting, Nausea/Vomiting, Shortness of Breath, Weight gain over 2 pounds If questions or concerns contact your physician Or seek help at emergency department. Activity Activity as Tolerated: Yes Activity Instructions: Avoid Stress to Incision Driving Instructions: No Driving/Refer to Dr. Thomas Discharge Diet: No Restrictions Diet After 24 Hours: Clear Liquid if Nauseous If Any Problems/Questions/Issu: Contact Your Physician, Go to Emergency Room Skin/Wound Care Infection Signs and Symptoms: Increased Redness, Foul Odor of Wound, Increased Drainage, Skin Itchy or Has a Rash, Increased Swelling, Temperature Above 101 F Bathing Instructions: Shower Stitches/[place]/Dermabond Dis: BAKARI Reyes DO Jan 24, 2023 09:49
[2023-01-24] MEDS ORDERED: morphine INJ 10 MG/ML 1ML (SYR OR VIAL) ONE (09:50)
[2023-01-24] MEDS ORDERED: OXC5T PO ×2 (09:50)
--- NOTE | 2023-01-24 09:51 | Anesthesia-General Post-Op ---
MAC Patient Condition Mental Status/LOC: Same as Preop Cardiovascular: Satisfactory Nausea/Vomiting: Absent Respiratory: Satisfactory Pain: Controlled Complications: Absent Post Op Complications Complications None Follow Up Care/Instructions Patient Instructions None needed. Anesthesiology Discharge Order Discharge Order Patient is doing well, no complaints, stable vital signs, no apparent adverse anesthesia problems. No complications reported per nursing. MALINI PARISH CRNA Jan 24, 2023 09:50
[2023-01-24] MEDS ORDERED: ONDANSETRON 4 MG/2 ML (SDV) Z0FRAN IVP PRN (10:00)
[2023-01-24] MEDS ORDERED: morphine INJ 10 MG/ML 1ML (SYR OR VIAL) IVP ONE (10:00)
--- NOTE | 2023-01-24 14:03 | Diagnostic Imaging Report ---
INDICATION: Port-A-Cath placement. TECHNIQUE: Intraoperative fluoroscopy views were obtained during Port-A-Cath placement in Surgery. Two views were obtained with 5.7 seconds of fluoroscopy time used. 0.82 mGy exposure. FINDINGS: Intraoperative views demonstrate a port over the right chest with the catheter entering the right subclavian vein. The catheter tip was not well visualized. IMPRESSION: Intraoperative fluoroscopy views were obtained during Port-A-Cath placement in Surgery. Dictated by: Dictated on workstation # [id number]
== END 2023-01-24 10:44 | disposition home or self-care (01) ==
LOC: SDC 07:30
PROVIDERS: ATTEND Surgery
DX: C21.0 Malignant neoplasm of anus, unspecified (principal); I87.2 Venous insufficiency (chronic) (peripheral)
CPT/HCPCS: 36561; 76000; 87081; C1788

== ENCOUNTER → 2023-01-29 | Outpatient (CLI) | payer OTHER ==
[~2023-01-29] MED LIST changes: +CATHETER FLUSH 10 ML SYR IVP PRN
--- NOTE | 2023-01-29 15:53 | Diagnostic Imaging Report ---
INDICATION: Initial staging squamous cell carcinoma of the anal skin. TECHNIQUE: The serum blood glucose level at the time injection was 69 mg/dL. The patient was administered 10.6 mCi of F-18 FDG intravenously and PET imaging was performed from the top of the skull to the mid thighs. A noncontrast CT was also performed for attenuation correction and anatomic correlation. COMPARISON: Correlation is made with a prior CT study from 01/19/2023. No prior PET/CT study is available for comparison. FINDINGS: There is symmetric activity throughout the brain. The soft tissues of the neck are unremarkable. No mediastinal or hilar hypermetabolism is identified. No pulmonary parenchymal hypermetabolism is identified. There is physiologic activity throughout the GI and tracts of the abdomen and pelvis. There is some uptake involving bilateral inguinal lymph nodes described on the recent CT. A left groin lymph node has an SUV of approximately 4.0. A right groin node demonstrates an SUV max of approximately 3.5. Significant hypermetabolism in the anal region is noted, correlating with the patient's primary malignancy. The SUV max is approximately 19. No other areas of hypermetabolism are identified. IMPRESSION: Significant hypermetabolic activity in the anal region corresponding with the primary malignancy. There is some mild uptake involving bilateral inguinal lymph nodes. Metastatic nodes cannot be entirely excluded. The remainder of the study is unremarkable. Dictated by: Dictated on workstation # [id number]
== END ==
LOC: RAD 09:23
PROVIDERS: ATTEND Radiology Radiation Oncology
DX: C44.520 Squamous cell carcinoma of anal skin (principal); R59.9 Enlarged lymph nodes, unspecified
CPT/HCPCS: 78815; 82947; A9552

== ENCOUNTER → 2023-02-19 | Outpatient (CLI) | payer OTHER ==
[~2023-02-19] MED LIST changes: -CATHETER FLUSH 10 ML SYR IVP PRN
== END ==
LOC: LAB 14:25
PROVIDERS: ATTEND Pediatrics
DX: C21.0 Malignant neoplasm of anus, unspecified (principal)
CPT/HCPCS: 36415; 86360

== ENCOUNTER → 2023-02-19 | Outpatient (RCR) | payer OTHER ==
[2023-02-05 09:13] LABS: BASOPHILS # (AUTO) 0.1 10^3/uL (0.0-0.1); BASOPHILS % (AUTO) 1 % (0-10); EOSINOPHILS # (AUTO) 0.3 10^3/uL (0.0-0.3); EOSINOPHILS % (AUTO) 3 % (0-10); HEMATOCRIT 40 % (40-54); HEMOGLOBIN 12.6 g/dL (13.3-17.7); LYMPHOCYTES # (AUTO) 1.4 10^3/uL (1.0-4.0); LYMPHOCYTES % (AUTO) 16 % (12-44); MEAN CORPUSCULAR HEMOGLOBIN 29 pg (25-34); MEAN CORPUSCULAR HGB CONC 31 g/dL (32-36); MEAN CORPUSCULAR VOLUME 92 fL (80-99); MEAN PLATELET VOLUME 9.5 fL (9.0-12.2); MONOCYTES # (AUTO) 0.6 10^3/uL (0.0-1.0); MONOCYTES % (AUTO) 6 % (0-12); NEUTROPHILS # (AUTO) 6.5 10^3/uL (1.8-7.8); NEUTROPHILS % (AUTO) 73 % (42-75); PLATELET COUNT 241 10^3/uL (130-400); WHITE BLOOD COUNT 8.8 10^3/uL (4.3-11.0)
[2023-02-05 09:41] LABS: ALBUMIN 4.2 GM/DL (3.2-4.5); BILIRUBIN,TOTAL 0.3 MG/DL (0.1-1.0); CALCIUM 9.5 MG/DL (8.5-10.1); TOTAL PROTEIN 7.7 GM/DL (6.4-8.2)
[2023-02-05 12:38] VITALS: BP 113/75
[2023-02-12 09:37] LABS: BASOPHILS % (AUTO) 1 % (0-10); EOSINOPHILS # (AUTO) 0.2 10^3/uL (0.0-0.3); EOSINOPHILS % (AUTO) 5 % (0-10); HEMATOCRIT 38 % (40-54); HEMOGLOBIN 12.6 g/dL (13.3-17.7); LYMPHOCYTES # (AUTO) 0.5 10^3/uL (1.0-4.0); LYMPHOCYTES % (AUTO) 13 % (12-44); MEAN CORPUSCULAR HEMOGLOBIN 30 pg (25-34); MEAN CORPUSCULAR HGB CONC 33 g/dL (32-36); MEAN CORPUSCULAR VOLUME 90 fL (80-99); MEAN PLATELET VOLUME 8.8 fL (9.0-12.2); MONOCYTES # (AUTO) 0.1 10^3/uL (0.0-1.0); MONOCYTES % (AUTO) 2 % (0-12); NEUTROPHILS # (AUTO) 2.9 10^3/uL (1.8-7.8); NEUTROPHILS % (AUTO) 79 % (42-75); PLATELET COUNT 210 10^3/uL (130-400); WHITE BLOOD COUNT 3.7 10^3/uL (4.3-11.0)
[2023-02-12 09:59] LABS: ALBUMIN 4.2 GM/DL (3.2-4.5); BILIRUBIN,TOTAL 0.3 MG/DL (0.1-1.0); CALCIUM 9.5 MG/DL (8.5-10.1); CREATININE SERUM 1.09 MG/DL (0.60-1.30); POTASSIUM 4.4 MMOL/L (3.6-5.0); TOTAL PROTEIN 7.7 GM/DL (6.4-8.2)
[~2023-02-19] VITALS: Ht 193 cm; Wt 116.9 kg
[~2023-02-19] MED LIST changes: +DEXAMETHASONE SODIUM PHOSPHATE IV SCH; +FLUOROURACIL IV SCH; +HEParin (CENTRAL IV FLUSH) 500 UNIT/5 ML SYR IV PRN; +MITOMYCIN IV SCH; +NS IV 1000 ML (CANCER CTR) IV SCH; +NS IV SCH; +ONDANSETRON IV SCH; +[UNRECOGNIZED DRUG - OTHER] IV SCH
[2023-02-19 14:30] LABS: BASOPHILS % (AUTO) 0 % (0-10); EOSINOPHILS # (AUTO) 0.1 10^3/uL (0.0-0.3); HEMATOCRIT 39 % (40-54); HEMOGLOBIN 12.7 g/dL (13.3-17.7); MEAN CORPUSCULAR VOLUME 91 fL (80-99); MONOCYTES # (AUTO) 0.3 10^3/uL (0.0-1.0)
[2023-02-19 14:51] LABS: ALBUMIN 4.2 GM/DL (3.2-4.5); BILIRUBIN,TOTAL 0.3 MG/DL (0.1-1.0); CALCIUM 9.3 MG/DL (8.5-10.1); CREATININE SERUM 0.94 MG/DL (0.60-1.30); TOTAL PROTEIN 7.4 GM/DL (6.4-8.2)
[2023-02-19 14:53] LABS: EOSINOPHILS % (AUTO) 4 % (0-10); LYMPHOCYTES # (AUTO) 0.4 10^3/uL (1.0-4.0); LYMPHOCYTES % (AUTO) 19 % (12-44); MEAN CORPUSCULAR HEMOGLOBIN 29 pg (25-34); MEAN CORPUSCULAR HGB CONC 32 g/dL (32-36); MEAN PLATELET VOLUME 9.4 fL (9.0-12.2); MONOCYTES % (AUTO) 14 % (0-12); NEUTROPHILS # (AUTO) 1.4 10^3/uL (1.8-7.8); NEUTROPHILS % (AUTO) 63 % (42-75); PLATELET COUNT 109 10^3/uL (130-400); WHITE BLOOD COUNT 2.3 10^3/uL (4.3-11.0)
== END | disposition home or self-care (01) ==
LOC: ONC 01-22 08:55
PROVIDERS: ATTEND Internal Medicine Hematology & Oncology
DX: Z51.11 Encounter for antineoplastic chemotherapy (principal); Z51.0 Encounter for antineoplastic radiation therapy; C44.520 Squamous cell carcinoma of anal skin
CPT/HCPCS: 36415; 36591; 77300; 77301; 77334; 77336; 77338; 77386; 77470; 80053; 85025; 96375; 96413; 96416; 99205; J9290

== ENCOUNTER → 2023-03-12 | Outpatient (CLI) | payer OTHER ==
[~2023-03-12] MED LIST changes: -DEXAMETHASONE SODIUM PHOSPHATE IV SCH; -FLUOROURACIL IV SCH; -HEParin (CENTRAL IV FLUSH) 500 UNIT/5 ML SYR IV PRN; -MITOMYCIN IV SCH; -NS IV 1000 ML (CANCER CTR) IV SCH; -NS IV SCH; -ONDANSETRON IV SCH; -[UNRECOGNIZED DRUG - OTHER] IV SCH
== END ==
LOC: LAB 12:50
PROVIDERS: ATTEND Pediatrics
DX: C21.0 Malignant neoplasm of anus, unspecified (principal); B20 Human immunodeficiency virus [HIV] disease
CPT/HCPCS: 36415; 86360

== ENCOUNTER 2023-03-16 10:38 | Outpatient (RCR) | payer OTHER ==
[2023-02-26 13:50] LABS: BASOPHILS % (AUTO) 1 % (0-10); EOSINOPHILS # (AUTO) 0.1 10^3/uL (0.0-0.3); EOSINOPHILS % (AUTO) 2 % (0-10); HEMATOCRIT 40 % (40-54); LYMPHOCYTES # (AUTO) 0.3 10^3/uL (1.0-4.0); LYMPHOCYTES % (AUTO) 8 % (12-44); MEAN CORPUSCULAR HEMOGLOBIN 30 pg (25-34); MEAN CORPUSCULAR HGB CONC 33 g/dL (32-36); MEAN CORPUSCULAR VOLUME 92 fL (80-99); MEAN PLATELET VOLUME 9.2 fL (9.0-12.2); MONOCYTES # (AUTO) 0.4 10^3/uL (0.0-1.0); MONOCYTES % (AUTO) 9 % (0-12); NEUTROPHILS # (AUTO) 3.4 10^3/uL (1.8-7.8); NEUTROPHILS % (AUTO) 80 % (42-75); PLATELET COUNT 115 10^3/uL (130-400); WHITE BLOOD COUNT 4.3 10^3/uL (4.3-11.0)
[2023-02-26 14:02] LABS: ALBUMIN 4.2 GM/DL (3.2-4.5); BILIRUBIN,TOTAL 0.5 MG/DL (0.1-1.0); CALCIUM 9.4 MG/DL (8.5-10.1); CREATININE SERUM 1.18 MG/DL (0.60-1.30); TOTAL PROTEIN 7.4 GM/DL (6.4-8.2)
[2023-03-05 13:24] LABS: BASOPHILS % (AUTO) 0 % (0-10); EOSINOPHILS # (AUTO) 0.3 10^3/uL (0.0-0.3); EOSINOPHILS % (AUTO) 7 % (0-10); HEMATOCRIT 42 % (40-54); HEMOGLOBIN 13.8 g/dL (13.3-17.7); LYMPHOCYTES # (AUTO) 0.2 10^3/uL (1.0-4.0); LYMPHOCYTES % (AUTO) 5 % (12-44); MEAN CORPUSCULAR HEMOGLOBIN 31 pg (25-34); MEAN CORPUSCULAR HGB CONC 33 g/dL (32-36); MEAN CORPUSCULAR VOLUME 93 fL (80-99); MEAN PLATELET VOLUME 8.9 fL (9.0-12.2); MONOCYTES # (AUTO) 0.3 10^3/uL (0.0-1.0); MONOCYTES % (AUTO) 6 % (0-12); NEUTROPHILS % (AUTO) 82 % (42-75); PLATELET COUNT 198 10^3/uL (130-400); WHITE BLOOD COUNT 4.8 10^3/uL (4.3-11.0)
[2023-03-05 13:53] LABS: ALBUMIN 4.3 GM/DL (3.2-4.5); BILIRUBIN,TOTAL 0.4 MG/DL (0.1-1.0); CALCIUM 9.7 MG/DL (8.5-10.1); CREATININE SERUM 1.11 MG/DL (0.60-1.30); POTASSIUM 3.8 MMOL/L (3.6-5.0); TOTAL PROTEIN 7.7 GM/DL (6.4-8.2)
[2023-03-12 09:16] VITALS: BP 117/76
[2023-03-12 09:31] LABS: BASOPHILS % (AUTO) 1 % (0-10); EOSINOPHILS # (AUTO) 0.5 10^3/uL (0.0-0.3); EOSINOPHILS % (AUTO) 11 % (0-10); HEMATOCRIT 38 % (40-54); HEMOGLOBIN 12.4 g/dL (13.3-17.7); LYMPHOCYTES # (AUTO) 0.2 10^3/uL (1.0-4.0); LYMPHOCYTES % (AUTO) 5 % (12-44); MEAN CORPUSCULAR HEMOGLOBIN 31 pg (25-34); MEAN CORPUSCULAR HGB CONC 33 g/dL (32-36); MEAN CORPUSCULAR VOLUME 94 fL (80-99); MEAN PLATELET VOLUME 8.9 fL (9.0-12.2); MONOCYTES # (AUTO) 0.5 10^3/uL (0.0-1.0); MONOCYTES % (AUTO) 12 % (0-12); NEUTROPHILS % (AUTO) 72 % (42-75); PLATELET COUNT 189 10^3/uL (130-400); WHITE BLOOD COUNT 4.2 10^3/uL (4.3-11.0)
[2023-03-12 09:53] LABS: ALBUMIN 3.9 GM/DL (3.2-4.5); BILIRUBIN,TOTAL 0.3 MG/DL (0.1-1.0); CALCIUM 8.7 MG/DL (8.5-10.1); CREATININE SERUM 0.98 MG/DL (0.60-1.30); POTASSIUM 3.7 MMOL/L (3.6-5.0); TOTAL PROTEIN 6.9 GM/DL (6.4-8.2)
[~2023-03-16 10:38] MED LIST changes: +DEXAMETHASONE SODIUM PHOSPHATE IV SCH; +FLUOROURACIL IV SCH; +HEParin (CENTRAL IV FLUSH) 500 UNIT/5 ML SYR IV PRN; +NS IV 1000 ML (CANCER CTR) IV SCH; +NS IV SCH; +ONDANSETRON IV SCH; +[UNRECOGNIZED DRUG - OTHER] IV SCH
== END 2023-03-22 | disposition home or self-care (01) ==
LOC: ONC 10:38
PROVIDERS: ATTEND Internal Medicine Hematology & Oncology
DX: Z51.0 Encounter for antineoplastic radiation therapy (principal); C44.520 Squamous cell carcinoma of anal skin
CPT/HCPCS: 77386; G0463; 36415; 36591; 77336; 80053; 85025; 99214

== ENCOUNTER 2023-04-24 10:35 | Outpatient (RCR) | payer OTHER ==
[2023-03-12 09:16] VITALS: BP 117/76
[~2023-04-24 10:35] MED LIST changes: -DEXAMETHASONE SODIUM PHOSPHATE IV SCH; -FLUOROURACIL IV SCH; -HEParin (CENTRAL IV FLUSH) 500 UNIT/5 ML SYR IV PRN; -NS IV 1000 ML (CANCER CTR) IV SCH; -NS IV SCH; -ONDANSETRON IV SCH; -[UNRECOGNIZED DRUG - OTHER] IV SCH
[2023-04-24 11:17] LABS: BASOPHILS % (AUTO) 1 % (0-10); EOSINOPHILS # (AUTO) 0.2 10^3/uL (0.0-0.3); EOSINOPHILS % (AUTO) 6 % (0-10); HEMATOCRIT 43 % (40-54); LYMPHOCYTES # (AUTO) 0.8 10^3/uL (1.0-4.0); LYMPHOCYTES % (AUTO) 21 % (12-44); MEAN CORPUSCULAR HEMOGLOBIN 31 pg (25-34); MEAN CORPUSCULAR HGB CONC 33 g/dL (32-36); MEAN CORPUSCULAR VOLUME 94 fL (80-99); MONOCYTES # (AUTO) 0.4 10^3/uL (0.0-1.0); MONOCYTES % (AUTO) 10 % (0-12); NEUTROPHILS # (AUTO) 2.5 10^3/uL (1.8-7.8); NEUTROPHILS % (AUTO) 62 % (42-75); PLATELET COUNT 178 10^3/uL (130-400); WHITE BLOOD COUNT 3.9 10^3/uL (4.3-11.0)
[2023-04-24 11:33] LABS: ALBUMIN 4.1 GM/DL (3.2-4.5); BILIRUBIN,TOTAL 0.4 MG/DL (0.1-1.0); CREATININE SERUM 1.09 MG/DL (0.60-1.30); POTASSIUM 4.3 MMOL/L (3.6-5.0)
== END 2023-05-22 | disposition home or self-care (01) ==
LOC: ONC 10:35
PROVIDERS: ATTEND Internal Medicine Hematology & Oncology
DX: C21.0 Malignant neoplasm of anus, unspecified (principal)
CPT/HCPCS: 80053; 85025; G0463; 36415; 99214

== ENCOUNTER 2023-05-31 09:16 | Outpatient (RCR) | payer OTHER ==
[2023-03-12 09:16] VITALS: BP 117/76
== END 2023-06-21 | disposition home or self-care (01) ==
LOC: ONC 09:16
PROVIDERS: ATTEND Internal Medicine Hematology & Oncology
DX: C21.0 Malignant neoplasm of anus, unspecified (principal)
CPT/HCPCS: 99213

== ENCOUNTER → 2023-06-18 | Outpatient (CLI) | payer OTHER ==
[~2023-06-18] MED LIST changes: +CATHETER FLUSH 10 ML SYR IVP PRN
--- NOTE | 2023-06-18 11:38 | Diagnostic Imaging Report ---
INDICATION: Subsequent staging, neoplasm of the anus. TECHNIQUE: Serum blood glucose level at the time of injection was 85 mg/dL. Patient was administered 10.8 mCi F-18 FDG intravenously, and PET imaging was performed from the top of the skull to mid thighs. Noncontrast CT was also performed for attenuation correction and anatomic correlation. COMPARISON: Correlation is made with prior PET/CT study from 01/29/2023. FINDINGS: There is symmetric activity throughout the brain. Soft tissues of the neck are unremarkable. No mediastinal or hilar hypermetabolism is identified. No pulmonary parenchymal hypermetabolism is identified. Physiologic activity throughout the GI and tracts is again noted. The area of significant hypermetabolism involving the region of the anus and perianal tissues has resolved. No definite hypermetabolic abdominal or pelvic lymphadenopathy is seen. Note is made of multiple stones in the gallbladder. IMPRESSION: 1. Significant response to therapy when compared with prior PET/CT from 01/29/2023. Previous significant hypermetabolism in the region of the anus and perianal tissues has resolved. No new region of FDG avidity is identified. No definite hypermetabolic chest, abdominal, or pelvic lymphadenopathy is detected. 2. Cholelithiasis. Dictated by: Dictated on workstation # [id number]
== END ==
LOC: RAD 08:27
PROVIDERS: ATTEND Internal Medicine Hematology & Oncology
DX: K80.20 Calculus of gallbladder without cholecystitis without obstruction (principal); C21.0 Malignant neoplasm of anus, unspecified
CPT/HCPCS: 78816; 82947; A9552